=== PATIENT | male | born 1950 | race Caucasian/White ===

== ENCOUNTER → 2016-12-27 | Outpatient (CLI) | payer BC, MEDICARE ==
[~2016-12-27] MED LIST: ABIL20TA2 OR; ATEN25TA OR; ATEN50TA2 OR; BABY81CH OR; CRES40TA OR; FURO20TA2 OR; LEVI20TA OR; LISI2.5T OR; LISI40TA OR; LISI5TAB OR; MELOPOW PO; NICO21DI4 TD; NITR0.4S SL; OMEP20TA7 OR; PAXI30TA OR; PLAV75TA2 OR; TERA2CAP3 OR; colestipol PO
--- NOTE | 2016-12-27 09:32 | REP ---
Cervical spine series: Limited study, two views. History: Status post fusion. Comparison exam August 10, 2016. Findings: AP and lateral views demonstrate ventral discectomy and fusion plating across the C3 through C7 disc levels. Intervertebral disc spacers are seen in place at each of these levels. Alignment is normal. There is mild discogenic spurring at C2-3. This is unchanged. Moderate osteoarthritic facet hypertrophy is noted diffusely also unchanged. The patient is edentulous. No acute abnormality. Impression: Status post ventral discectomy and fusion C3-C7. Signed by Galindo Cat MD 12/27/2016 10:38 A
== END ==
LOC: M ADAMS 08:34
PROVIDERS: ATTEND Family Medicine
DX: M99.81 Other biomechanical lesions of cervical region (principal); M48.02 Spinal stenosis, cervical region; M54.12 Radiculopathy, cervical region; M50.30 Other cervical disc degeneration, unspecified cervical region

== ENCOUNTER → 2017-01-22 | Outpatient (CLI) | payer BC, MEDICARE ==
--- NOTE | 2017-01-22 13:53 | REP ---
CT CERVICAL SPINE WITHOUT CONTRAST: HISTORY: Spinal stenosis. COMPARISON: 03/23/2011. The patient is status post C3-7 anterior spinal fusion. A fixation plate and bone graft material are present. A disc bulge is present at the C2-3 level. Calcification is present posterior to the C2-3 intervertebral disc. This represents calcification of the posterior longitudinal ligament. Posterior osteophytes are present at the C3-4 and C6-7 levels. There is minimal narrowing of the spinal canal. Uncinate process and/or facet hypertrophy are present at the C2-3 through C7-T1 levels. These findings produce minimal to moderate narrowing of the neural foramina. The vertebral bodies are normal in height. IMPRESSION: 1. The patient is status post C3-7 anterior spinal fusion. There is anatomic alignment of the cervical spine. 2. There is cervical spondylosis at the C2-3 through C7-T1 levels. The postoperative change is a new finding. Signed by Simon Fleming MD 01/22/2017 02:24 P
--- NOTE | 2017-01-23 08:16 | REP ---
MRI CERVICAL SPINE WITHOUT CONTRAST: HISTORY: Spinal stenosis. COMPARISON: CT 01/22/2017 A disc bulge is present at the C2-3 level. There is minimal effacement of the thecal sac without spinal cord compression. Facet hypertrophy is present on the left. This produces minimal narrowing of the left C2 neural foramen. The right C2 neural foramen is patent. Posterior osteophytes are present at the C3-4 level. There is minimal effacement of the thecal sac without spinal cord compression. Bilateral uncinate process and facet hypertrophy are present. These findings produce mild and moderate narrowing of the right and left C3 neural foramina respectively. Uncinate process and facet hypertrophy are present on the left at the C4-5 level. These findings produce minimal narrowing of the left C4 neural foramen. The right C4 neural foramen is patent. Bilateral uncinate process hypertrophy is present at the C5-6 level. This produces mild narrowing of the C5 neural foramina. Posterior osteophytes are present at the C6-7 level. There is moderate effacement of the thecal sac without spinal cord compression. Bilateral uncinate process hypertrophy is present. This produces moderate narrowing of the C6 neural foramina. Facet hypertrophy is present at the C7-T1 level. This produces mild narrowing of the C7 neural foramina. There is no other disc bulge or herniation. The remaining neural foramina are patent. The spinal cord is normal in signal intensity. There is no intradural extramedullary lesion. Normal signal intensity is present in the visualized vertebral bodies. A hemangioma is present in the T4 vertebral body. There is no subluxation. IMPRESSION: 1. The patient is status post C3 to C7 anterior spinal fusion. There is anatomical alignment of the cervical spine. 2. There is cervical spondylosis at the C2-3 through C7-T1 levels without spinal cord compression. Signed by Simon Fleming MD 01/22/2017 03:55 P
== END ==
LOC: M RAD 12:54
PROVIDERS: ATTEND Orthopaedic Surgery
DX: M47.12 Other spondylosis with myelopathy, cervical region (principal); Z98.1 Arthrodesis status; M99.81 Other biomechanical lesions of cervical region; M48.02 Spinal stenosis, cervical region; M54.12 Radiculopathy, cervical region; M50.30 Other cervical disc degeneration, unspecified cervical region

== ENCOUNTER → 2017-02-06 | Outpatient (REF) | payer BC, MEDICARE ==
[2017-02-06 13:28] LABS: MEAN CORPUSCULAR HEMOGLOBIN 33.2 pg (27.0-33.0); MEAN CORPUSCULAR HGB CONC 33.8 g/dl (32.0-36.5); MEAN CORPUSCULAR VOLUME 98.1 fl (80.0-96.0); RED CELL DISTRIBUTION WIDTH 13.4 % (11.5-14.5)
== END ==
LOC: M SFHCADAM 10:36
PROVIDERS: ATTEND Family Medicine
DX: I25.10 Atherosclerotic heart disease of native coronary artery without angina pectoris (principal); E78.5 Hyperlipidemia, unspecified

== ENCOUNTER → 2017-02-12 | Outpatient (REF) | payer BC, MEDICARE ==
[2017-02-14 14:13] LABS: Lyme Disease IgG/IgM Antibodie <0.91 ISR (0.00-0.90); Lyme Disease IgM Ab Quantitati <0.80 index (0.00-0.79)
== END ==
LOC: M SFHCADAM 10:12
PROVIDERS: ATTEND Family Medicine
DX: A69.20 Lyme disease, unspecified (principal)

== ENCOUNTER → 2017-02-27 | Outpatient (REF) | payer BC, MEDICARE | LOC: M SFHCADAM 13:10 | PROVIDERS: ATTEND Family Medicine | DX: Z01.818 Encounter for other preprocedural examination (principal) ==

== ENCOUNTER → 2017-05-13 | Outpatient (CLI) | payer BC, MEDICARE ==
--- NOTE | 2017-05-14 04:19 | REP ---
Clinical: Neck pain. Technique: AP, lateral, open mouth views. Comparison: 12/27/2016. Findings: Anterior fusion and discectomy from C3 through C7 remains stable and essentially normal. Alignment and lordosis is maintained. The patient is status post recent laminectomy (C3 - C6) and posterior fusion from C3 through C7. Paravertebral soft tissues appear normal. Impression: Status post anterior fusion, posterior fusion and laminectomy. Alignment remains stable. No soft tissue abnormalities appreciated. Signed by Leandro Chavarria MD 05/14/2017 04:11 A
== END ==
LOC: M ADAMS 13:02
PROVIDERS: ATTEND Orthopaedic Surgery
DX: M50.30 Other cervical disc degeneration, unspecified cervical region (principal)

== ENCOUNTER → 2017-06-25 | Outpatient (REF) | payer BC, MEDICARE ==
[2017-06-25 19:51] LABS: ALBUMIN 4.3 GM/DL (3.2-5.2); ALBUMIN/GLOBULIN RATIO 1.48 (1.00-1.93); ALKALINE PHOSPHATASE 110 U/L (45-117); ALT/SGPT 24 U/L (12-78); ANION GAP 9 MEQ/L (8-16); AST/SGOT 19 U/L (15-37); BILIRUBIN,TOTAL 0.7 MG/DL (0.2-1.0); BLOOD UREA NITROGEN 16 MG/DL (7-18); CALCIUM LEVEL 8.5 MG/DL (8.8-10.2); CARBON DIOXIDE LEVEL 27 MEQ/L (21-32); CHLORIDE LEVEL 103 MEQ/L (98-107); CREATININE FOR GFR 1.03 MG/DL (0.70-1.30); FREE T4 0.91 NG/DL (0.76-1.46); GLOMERULAR FILTRATION RATE > 60.0 (>49); GLUCOSE, FASTING 79 MG/DL (80-110); POTASSIUM SERUM 4.4 MEQ/L (3.5-5.1); SODIUM LEVEL 139 MEQ/L (136-145); TOTAL PROTEIN 7.2 GM/DL (6.4-8.2)
[2017-06-25 20:39] LABS: MEAN CORPUSCULAR HEMOGLOBIN 31.6 pg (27.0-33.0); MEAN CORPUSCULAR HGB CONC 32.3 g/dl (32.0-36.5); MEAN CORPUSCULAR VOLUME 97.8 fl (80.0-96.0); RED CELL DISTRIBUTION WIDTH 13.4 % (11.5-14.5); WHITE BLOOD COUNT 4.5 K/mm3 (4.0-10.0)
[2017-06-28 00:07] LABS: Lyme Disease IgG/IgM Antibodie <0.91 ISR (0.00-0.90); Lyme Disease IgM Ab Quantitati <0.80 index (0.00-0.79)
== END ==
LOC: M SFHCADAM 15:31
PROVIDERS: ATTEND Family Medicine
DX: R53.83 Other fatigue (principal); R73.03 Prediabetes; M25.50 Pain in unspecified joint

== ENCOUNTER → 2017-08-14 | Outpatient (CLI) | payer BC, MEDICARE ==
--- NOTE | 2017-08-14 11:30 | REP ---
Clinical: Radiculopathy. Technique: AP, lateral, open mouth views of the cervical spine. Comparison: 05/13/2017. Findings: The patient is status post anterior and posterior fixation and discectomy at the C3 through C7 levels. Alignment and lordosis maintained. Examination remains stable and unchanged compared to prior. No new acute findings are appreciated. Prevertebral soft tissues are normal. Impression: Stable examination when compared to 05/13/2017. Signed by Leandro Chavarria MD 08/14/2017 11:22 A
== END ==
LOC: M ADAMS 10:49
PROVIDERS: ATTEND Orthopaedic Surgery
DX: M54.12 Radiculopathy, cervical region (principal); M48.02 Spinal stenosis, cervical region; M50.30 Other cervical disc degeneration, unspecified cervical region; M99.81 Other biomechanical lesions of cervical region

== ENCOUNTER → 2017-10-09 | Outpatient (CLI) | payer BC, MEDICARE ==
--- NOTE | 2017-10-09 11:44 | REP ---
Chest two views HISTORY: Dyspnea Comparison: 11/17/2015 The lungs are clear. The heart is normal in size. The pulmonary vasculature is normal in appearance. Degenerative change is present in the thoracic spine. IMPRESSION: No acute disease. Signed by Simon Fleming MD 10/09/2017 11:36 A
== END ==
LOC: M ADAMS 10:33
PROVIDERS: ATTEND Family Medicine
DX: R06.09 Other forms of dyspnea (principal)

== ENCOUNTER → 2017-11-06 | Outpatient (REF) | payer BC, MEDICARE ==
[2017-11-06 13:05] LABS: ALBUMIN 4.2 GM/DL (3.2-5.2); ALBUMIN/GLOBULIN RATIO 1.31 (1.00-1.93); ALKALINE PHOSPHATASE 125 U/L (45-117); ALT/SGPT 133 U/L (12-78); ANION GAP 9 MEQ/L (8-16); AST/SGOT 84 U/L (7-37); BILIRUBIN,TOTAL 0.6 MG/DL (0.2-1.0); BLOOD UREA NITROGEN 14 MG/DL (7-18); CALCIUM LEVEL 8.6 MG/DL (8.8-10.2); CARBON DIOXIDE LEVEL 28 MEQ/L (21-32); CHLORIDE LEVEL 102 MEQ/L (98-107); CREATININE FOR GFR 0.96 MG/DL (0.70-1.30); FERRITIN 90 NG/ML (26-388); GLOMERULAR FILTRATION RATE > 60.0 (>49); GLUCOSE, FASTING 81 MG/DL (80-110); POTASSIUM SERUM 4.7 MEQ/L (3.5-5.1); SODIUM LEVEL 139 MEQ/L (136-145); TOTAL PROTEIN 7.4 GM/DL (6.4-8.2)
[2017-11-06 13:12] LABS: HEPATITIS B SURFACE ANTIBODY NEGATIVE (POSITIVE)
[2017-11-07 14:21] LABS: ALPHA 1 ANTITRYPSIN 149 mg/dL (90-200)
== END ==
LOC: M SFHCADAM 10:42
PROVIDERS: ATTEND Family Medicine
DX: R74.8 Abnormal levels of other serum enzymes (principal)

== ENCOUNTER → 2017-12-03 | Outpatient (REF) | payer BC, MEDICARE ==
[2017-12-03 12:50] LABS: HEMATOCRIT 38.9 % (42.0-52.0); HEMOGLOBIN 12.5 g/dl (14.0-18.0); MEAN CORPUSCULAR HEMOGLOBIN 29.6 pg (27.0-33.0); MEAN CORPUSCULAR HGB CONC 32.1 g/dl (32.0-36.5); PLATELET COUNT, AUTOMATED 210 10^3/uL (150-450); RED BLOOD COUNT 4.23 10^6/uL (4.30-6.10); RED CELL DISTRIBUTION WIDTH 12.9 % (11.5-14.5); WHITE BLOOD COUNT 7.9 10^3/uL (4.0-10.0)
[2017-12-03 13:05] LABS: INR 1.05; PROTHROMBIN TIME 13.8 SECONDS (12.4-14.5)
[2017-12-03 13:19] LABS: ANION GAP 12 MEQ/L (8-16); BLOOD UREA NITROGEN 17 MG/DL (7-18); CALCIUM LEVEL 8.3 MG/DL (8.8-10.2); CARBON DIOXIDE LEVEL 25 MEQ/L (21-32); CHLORIDE LEVEL 101 MEQ/L (98-107); CREATININE FOR GFR 1.19 MG/DL (0.70-1.30); GLOMERULAR FILTRATION RATE > 60.0 (>49); GLUCOSE, FASTING 104 MG/DL (80-110); NT-PRO BNP 338 PG/ML (<125); POTASSIUM SERUM 4.2 MEQ/L (3.5-5.1); SODIUM LEVEL 138 MEQ/L (136-145)
== END ==
LOC: M LABDRWAD 12:27
DX: J44.9 Chronic obstructive pulmonary disease, unspecified (principal); I50.9 Heart failure, unspecified
CPT/HCPCS: 80048

== ENCOUNTER → 2017-12-04 | Outpatient (CLI) | payer BC, MEDICARE | LOC: M RAD 08:04 | DX: R74.8 Abnormal levels of other serum enzymes (principal); K76.0 Fatty (change of) liver, not elsewhere classified; R93.2 Abnormal findings on diagnostic imaging of liver and biliary tract | CPT/HCPCS: 76705 ==

== ENCOUNTER → 2018-01-29 | Outpatient (CLI) | payer BC, MEDICARE | LOC: M RAD 09:19 | DX: F17.210 Nicotine dependence, cigarettes, uncomplicated (principal) ==

== ENCOUNTER → 2018-03-14 | Outpatient (CLI) | payer BC, MEDICARE | LOC: M PAIN 09:30 | DX: G89.29 Other chronic pain (principal); M54.16 Radiculopathy, lumbar region; M51.26 Other intervertebral disc displacement, lumbar region; I25.10 Atherosclerotic heart disease of native coronary artery without angina pectoris; G47.30 Sleep apnea, unspecified; F31.9 Bipolar disorder, unspecified; N52.9 Male erectile dysfunction, unspecified; F43.10 Post-traumatic stress disorder, unspecified; E78.5 Hyperlipidemia, unspecified; I10 Essential (primary) hypertension; J44.9 Chronic obstructive pulmonary disease, unspecified; M54.2 Cervicalgia; R73.03 Prediabetes; N40.0 Benign prostatic hyperplasia without lower urinary tract symptoms; K76.0 Fatty (change of) liver, not elsewhere classified; L71.9 Rosacea, unspecified; Z95.5 Presence of coronary angioplasty implant and graft; Z87.891 Personal history of nicotine dependence; Z98.1 Arthrodesis status; Z79.02 Long term (current) use of antithrombotics/antiplatelets; Z79.82 Long term (current) use of aspirin; Z79.899 Other long term (current) drug therapy; Z88.0 Allergy status to penicillin; Z88.8 Allergy status to other drugs, medicaments and biological substances; Z88.1 Allergy status to other antibiotic agents | CPT/HCPCS: G0463 ==

== ENCOUNTER → 2018-04-04 | Outpatient (REF) | payer BC, MEDICARE ==
[2018-04-04 14:14] LABS: PSA SCREENING 0.83 NG/ML (< 4.0)
== END ==
LOC: M LABDRWAD 12:34
DX: Z12.5 Encounter for screening for malignant neoplasm of prostate (principal)
CPT/HCPCS: G0103

== ENCOUNTER → 2018-04-07 | Outpatient (REF) | payer BC, MEDICARE ==
[2018-04-07 19:31] LABS: APPEARANCE, URINE CLEAR (CLEAR); BACTERIA, URINE AUTO NEGATIVE (NEGATIVE); BILIRUBIN, URINE AUTO NEGATIVE (NEGATIVE); BLOOD, URINE BLOOD NEGATIVE (NEGATIVE); COLOR, URINE STRAW (YELLOW); GLUCOSE, URINE (UA) AUTO NEGATIVE (NEGATIVE); KETONE, URINE AUTO NEGATIVE (NEGATIVE); LEUKOCYTE ESTERASE, URINE AUTO NEGATIVE (NEGATIVE); NITRITE, URINE AUTO NEGATIVE (NEGATIVE); PROTEIN, URINE AUTO NEGATIVE (NEGATIVE); RBC, URINE AUTO 0 /HPF (0-3); SPECIFIC GRAVITY URINE AUTO 1.003 (1.002-1.035); SQUAMOUS EPITHELIAL CELL UR AU 0 /HPF (0-6); UROBILINOGEN, URINE AUTO 0.2 mg/dL (0.0-2.0); WBC, URINE AUTO 0 /HPF (0-3)
== END ==
LOC: M SMT 18:43
DX: N40.0 Benign prostatic hyperplasia without lower urinary tract symptoms (principal)
CPT/HCPCS: 81001

== ENCOUNTER → 2018-04-14 | Outpatient (REF) | payer BC, MEDICARE | LOC: M SMT 12:31 | DX: N40.1 Benign prostatic hyperplasia with lower urinary tract symptoms (principal) | CPT/HCPCS: 87088 ==

== ENCOUNTER → 2018-04-21 | Outpatient (CLI) | payer BC, MEDICARE | LOC: M RAD 08:01 | DX: N40.1 Benign prostatic hyperplasia with lower urinary tract symptoms (principal) | CPT/HCPCS: 76857 ==

== ENCOUNTER → 2018-04-25 | Outpatient (CLI) | payer BC, MEDICARE | LOC: M RAD 08:25 | DX: N40.0 Benign prostatic hyperplasia without lower urinary tract symptoms (principal) ==

== ENCOUNTER → 2018-05-08 | Outpatient (REF) | payer BC, MEDICARE | LOC: M SMT 12:24 | DX: N40.0 Benign prostatic hyperplasia without lower urinary tract symptoms (principal); Z01.818 Encounter for other preprocedural examination; N39.0 Urinary tract infection, site not specified | CPT/HCPCS: 87086 ==

== ENCOUNTER → 2018-05-08 | Outpatient (CLI) | payer BC, MEDICARE | LOC: M RAD 07:59 | DX: R91.8 Other nonspecific abnormal finding of lung field (principal) ==

== ENCOUNTER → 2018-05-15 | Outpatient (CLI) | payer BC, MEDICARE | LOC: M PAIN 09:15 | DX: M51.26 Other intervertebral disc displacement, lumbar region (principal); G47.30 Sleep apnea, unspecified; F31.9 Bipolar disorder, unspecified; I25.10 Atherosclerotic heart disease of native coronary artery without angina pectoris; F43.10 Post-traumatic stress disorder, unspecified; E78.5 Hyperlipidemia, unspecified; I10 Essential (primary) hypertension; J44.9 Chronic obstructive pulmonary disease, unspecified; M19.90 Unspecified osteoarthritis, unspecified site; R73.09 Other abnormal glucose; L71.9 Rosacea, unspecified; K76.0 Fatty (change of) liver, not elsewhere classified; Z79.01 Long term (current) use of anticoagulants; Z79.82 Long term (current) use of aspirin; Z79.899 Other long term (current) drug therapy; Z88.0 Allergy status to penicillin; Z88.1 Allergy status to other antibiotic agents; Z88.8 Allergy status to other drugs, medicaments and biological substances; Z87.891 Personal history of nicotine dependence; Z93.6 Other artificial openings of urinary tract status | CPT/HCPCS: G0463 ==

== ENCOUNTER → 2018-05-23 | Outpatient (REF) | payer BC ==
[2018-05-23 14:16] LABS: APPEARANCE, URINE CLEAR (CLEAR); BACTERIA, URINE AUTO NEGATIVE (NEGATIVE); BILIRUBIN, URINE AUTO NEGATIVE (NEGATIVE); BLOOD, URINE BLOOD 2+ (NEGATIVE); COLOR, URINE STRAW (YELLOW); GLUCOSE, URINE (UA) AUTO NEGATIVE (NEGATIVE); KETONE, URINE AUTO NEGATIVE (NEGATIVE); LEUKOCYTE ESTERASE, URINE AUTO NEGATIVE (NEGATIVE); NITRITE, URINE AUTO NEGATIVE (NEGATIVE); PROTEIN, URINE AUTO NEGATIVE (NEGATIVE); RBC, URINE AUTO 5 /HPF (0-3); SPECIFIC GRAVITY URINE AUTO 1.003 (1.002-1.035); SQUAMOUS EPITHELIAL CELL UR AU 0 /HPF (0-6); UROBILINOGEN, URINE AUTO 0.2 mg/dL (0.0-2.0); WBC, URINE AUTO 0 /HPF (0-3)
== END ==
LOC: M SMT 13:46
DX: N40.0 Benign prostatic hyperplasia without lower urinary tract symptoms (principal)
CPT/HCPCS: 81001

== ENCOUNTER → 2018-06-24 | Outpatient (REF) | payer BC, MEDICARE ==
[2018-06-24 19:37] LABS: ALBUMIN/GLOBULIN RATIO 1.29 (1.00-1.93); ALKALINE PHOSPHATASE 102 U/L (45-117); ALT/SGPT 128 U/L (12-78); ANION GAP 7 MEQ/L (8-16); AST/SGOT 92 U/L (7-37); BILIRUBIN,TOTAL 0.9 MG/DL (0.2-1.0); BLOOD UREA NITROGEN 15 MG/DL (7-18); CALCIUM LEVEL 8.7 MG/DL (8.8-10.2); CARBON DIOXIDE LEVEL 32 MEQ/L (21-32); CHLORIDE LEVEL 99 MEQ/L (98-107); CHOLESTEROL LEVEL 116 MG/DL (<200); CHOLESTEROL RISK RATIO 2.148 (<5); CREATININE FOR GFR 1.11 MG/DL (0.70-1.30); GLOMERULAR FILTRATION RATE > 60.0 (>49); GLUCOSE, FASTING 83 MG/DL (70-100); HDL CHOLESTEROL 54 MG/DL (>40); LDL CHOLESTEROL 45.6 MG/DL (<100); NON-HDL-C 62 MG/DL; POTASSIUM SERUM 4.4 MEQ/L (3.5-5.1); SODIUM LEVEL 138 MEQ/L (136-145); TOTAL PROTEIN 7.1 GM/DL (6.4-8.2); TRIGLYCERIDES LEVEL 82 MG/DL (<150)
[2018-06-24 19:54] LABS: HEMATOCRIT 43.6 % (42.0-52.0); HEMOGLOBIN 14.1 g/dl (13.5-17.5); MEAN CORPUSCULAR HEMOGLOBIN 29.2 pg (27.0-33.0); MEAN CORPUSCULAR HGB CONC 32.3 g/dl (32.0-36.5); MEAN CORPUSCULAR VOLUME 90.3 fl (80.0-96.0); PLATELET COUNT, AUTOMATED 167 10^3/uL (150-450); RED BLOOD COUNT 4.83 10^6/uL (4.30-6.10)
== END ==
LOC: M SFHCADAM 14:20
DX: Z95.1 Presence of aortocoronary bypass graft (principal); J44.9 Chronic obstructive pulmonary disease, unspecified; K76.0 Fatty (change of) liver, not elsewhere classified

== ENCOUNTER → 2018-06-25 | Outpatient (CLI) | payer BC, MEDICARE | LOC: M RAD 16:09 | DX: M51.26 Other intervertebral disc displacement, lumbar region (principal) | CPT/HCPCS: 72148 ==

== ENCOUNTER → 2018-06-30 | Outpatient (CLI) | payer BC, MEDICARE | LOC: M PAIN 10:45 | DX: M48.07 Spinal stenosis, lumbosacral region (principal); G89.29 Other chronic pain; G47.30 Sleep apnea, unspecified; I10 Essential (primary) hypertension; J44.9 Chronic obstructive pulmonary disease, unspecified; M19.90 Unspecified osteoarthritis, unspecified site; E78.5 Hyperlipidemia, unspecified; F31.9 Bipolar disorder, unspecified; F43.10 Post-traumatic stress disorder, unspecified; L71.9 Rosacea, unspecified; K76.0 Fatty (change of) liver, not elsewhere classified; R73.09 Other abnormal glucose; F17.210 Nicotine dependence, cigarettes, uncomplicated; Z79.01 Long term (current) use of anticoagulants; Z79.82 Long term (current) use of aspirin; Z79.899 Other long term (current) drug therapy; Z88.0 Allergy status to penicillin; Z88.1 Allergy status to other antibiotic agents; Z88.8 Allergy status to other drugs, medicaments and biological substances; Z86.79 Personal history of other diseases of the circulatory system | CPT/HCPCS: G0463 ==

== ENCOUNTER → 2018-09-01 | Outpatient (CLI) | payer BC, MEDICARE | LOC: M PAIN 09:30 | DX: M48.07 Spinal stenosis, lumbosacral region (principal); M54.2 Cervicalgia; E87.5 Hyperkalemia; I10 Essential (primary) hypertension; F32.9 Major depressive disorder, single episode, unspecified; N40.0 Benign prostatic hyperplasia without lower urinary tract symptoms; I25.10 Atherosclerotic heart disease of native coronary artery without angina pectoris; K76.0 Fatty (change of) liver, not elsewhere classified; F17.210 Nicotine dependence, cigarettes, uncomplicated; Z79.82 Long term (current) use of aspirin; Z79.01 Long term (current) use of anticoagulants; Z79.899 Other long term (current) drug therapy; Z88.0 Allergy status to penicillin; Z88.8 Allergy status to other drugs, medicaments and biological substances; Z95.1 Presence of aortocoronary bypass graft | CPT/HCPCS: G0463 ==

== ENCOUNTER 2018-09-08 10:43 | Day surgery (SDC) | payer BC, MEDICARE ==
[~2018-09-08 10:43] MED LIST changes: -ABIL20TA2 OR; +ACETAMINOPHEN 325 MG TAB PO; -ATEN25TA OR; -ATEN50TA2 OR; -BABY81CH OR; -CRES40TA OR; -FURO20TA2 OR; -LEVI20TA OR; -LISI2.5T OR; -LISI40TA OR; -LISI5TAB OR; -MELOPOW PO; +MIDAZOLAM INJ 2 MG/2 ML VIAL (J2250) As Ordered; -NICO21DI4 TD; -NITR0.4S SL; -OMEP20TA7 OR; -PAXI30TA OR; +PHENYLEPHRINE 2.5% OPHTH SOL 2ML OS; +PHENYLEPHRINE HCL 10 % OPHTH. SOL 5ML OS; -PLAV75TA2 OR; -TERA2CAP3 OR; -colestipol PO; +fentaNYL 100 MCG/2 ML INJECTION (J3010) As Ordered
[2018-09-08] MEDS ORDERED: CYCLOPENTOLATE 2% OPHTH SOLN 2ML BTL As Ordered (10:59)
[2018-09-08] MEDS ORDERED: OFLOXACIN 0.3 % (OCUFLOX) OPTH SOL 5ML As Ordered (10:59)
[2018-09-08] MEDS ORDERED: PHENYLEPHRINE 2.5% OPHTH SOL 2ML As Ordered (10:59)
[2018-09-08] MEDS ORDERED: TROPICAMIDE 1% OPHTH SOLN 2ML As Ordered (10:59)
[2018-09-08] MEDS: OFLOXACIN 0.3 % (OCUFLOX) OPTH SOL 5ML OS (11:39)
[2018-09-08] MEDS: TROPICAMIDE 1% OPHTH SOLN 2ML OS (11:39)
[2018-09-08] MEDS: CYCLOPENTOLATE 2% OPHTH SOLN 2ML BTL OS (11:39)
[2018-09-08] MEDS: LIDOCAINE 3.5 % 1ML OPHTH TOPICAL GEL OU (11:39)
[2018-09-08] MEDS: POVIDONE-IODINE 5% OPHTH PREP SOL 30ML As Ordered (12:38)
[2018-09-08] MEDS: LIDOCAINE 1% SDV 5 ML VIAL As Ordered (12:42)
[2018-09-08] MEDS: BSS with VANC/TOB/EPI for EYE CASES IR (12:43)
[2018-09-08] MEDS: MOXIFLOXACIN IN BSS 0.25MG/0.25ML INTRACAMERAL INJ (OR EYE ONLY)(J2280) As Ordered (12:48)
[2018-09-08] MEDS: TRIAMCINOLONE PRES FR 40 MG/ML 1ML(TRIESENCE)(OR EYE ONLY)(J3300 PER 1MG) As Ordered (12:48)
[2018-09-08] MEDS: HEALON DUET (HEALON 10MG/ML 0.55ML & HEALON ENDOCOAT 30MG/ML 0.85ML) As Ordered (12:48)
[2018-09-08] MEDS ORDERED: AcetaZOLAMIDE 500 MG ER CAP As Ordered (13:11)
[2018-09-08] MEDS: AcetaZOLAMIDE 500 MG ER CAP PO (13:20)
[2018-09-08] MEDS ORDERED: TRIMETHOBENZAMIDE 300 MG CAP PO (13:30)
== END 2018-09-08 13:43 | disposition home or self-care (01) ==
LOC: M SDC 10:43
DX: H25.9 Unspecified age-related cataract (principal); Z98.61 Coronary angioplasty status; Z79.02 Long term (current) use of antithrombotics/antiplatelets; Z79.899 Other long term (current) drug therapy; F17.210 Nicotine dependence, cigarettes, uncomplicated; G47.30 Sleep apnea, unspecified; I10 Essential (primary) hypertension; J44.9 Chronic obstructive pulmonary disease, unspecified; Z88.0 Allergy status to penicillin
CPT/HCPCS: 66984

== ENCOUNTER 2018-09-17 10:14 | Day surgery (SDC) | payer BC, MEDICARE ==
[~2018-09-17 10:14] MED LIST changes: -MIDAZOLAM INJ 2 MG/2 ML VIAL (J2250) As Ordered; -PHENYLEPHRINE 2.5% OPHTH SOL 2ML OS; +PHENYLEPHRINE HCL 10 % OPHTH. SOL 5ML OD; -PHENYLEPHRINE HCL 10 % OPHTH. SOL 5ML OS; -fentaNYL 100 MCG/2 ML INJECTION (J3010) As Ordered
[2018-09-17] MEDS: OFLOXACIN 0.3 % (OCUFLOX) OPTH SOL 5ML OD (11:12)
[2018-09-17] MEDS: TROPICAMIDE 1% OPHTH SOLN 2ML OD (11:12)
[2018-09-17] MEDS: CYCLOPENTOLATE 2% OPHTH SOLN 2ML BTL OD (11:12)
[2018-09-17] MEDS: PHENYLEPHRINE 2.5% OPHTH SOL 2ML OD (11:12)
[2018-09-17] MEDS: LIDOCAINE 3.5 % 1ML OPHTH TOPICAL GEL OU (11:12)
[2018-09-17] MEDS ORDERED: fentaNYL 100 MCG/2 ML INJECTION (J3010) As Ordered (12:04)
[2018-09-17] MEDS ORDERED: MIDAZOLAM INJ 2 MG/2 ML VIAL (J2250) As Ordered (12:04)
[2018-09-17] MEDS: HEALON DUET (HEALON 10MG/ML 0.55ML & HEALON ENDOCOAT 30MG/ML 0.85ML) As Ordered (12:28)
[2018-09-17] MEDS: BSS with VANC/TOB/EPI for EYE CASES IR (12:28)
[2018-09-17] MEDS: LIDOCAINE 1% SDV 5 ML VIAL As Ordered (12:28)
[2018-09-17] MEDS: POVIDONE-IODINE 5% OPHTH PREP SOL 30ML As Ordered (12:28)
[2018-09-17] MEDS: TRIAMCINOLONE PRES FR 40 MG/ML 1ML(TRIESENCE)(OR EYE ONLY)(J3300 PER 1MG) As Ordered (12:29)
[2018-09-17] MEDS: MOXIFLOXACIN IN BSS 0.25MG/0.25ML INTRACAMERAL INJ (OR EYE ONLY)(J2280) As Ordered (12:29)
[2018-09-17] MEDS ORDERED: AcetaZOLAMIDE 500 MG ER CAP As Ordered (13:35)
[2018-09-17] MEDS: AcetaZOLAMIDE 500 MG ER CAP PO (13:40)
[2018-09-17] MEDS ORDERED: TRIMETHOBENZAMIDE 300 MG CAP PO (13:45)
== END 2018-09-17 13:40 | disposition home or self-care (01) ==
LOC: M SDC 10:14
DX: H26.9 Unspecified cataract (principal); I10 Essential (primary) hypertension; E78.5 Hyperlipidemia, unspecified; F31.9 Bipolar disorder, unspecified; F17.210 Nicotine dependence, cigarettes, uncomplicated; G47.30 Sleep apnea, unspecified; Z79.899 Other long term (current) drug therapy; Z88.0 Allergy status to penicillin; Z79.82 Long term (current) use of aspirin; Z98.61 Coronary angioplasty status
CPT/HCPCS: 66984

== ENCOUNTER 2018-09-18 09:22 | Inpatient (IN) | payer BC, MEDICARE ==
[2018-09-18 09:59] LABS: BEDSIDE GLUCOSE 92 MG/DL (80-115)
[2018-09-18 10:04] LABS: BASO % 0.5 % (0.0-1.0); EOS # 0.1 10^3/uL (0.0-0.50); EOS % 1.6 % (0.0-3.0); HEMATOCRIT 43.8 % (42.0-52.0); HEMOGLOBIN 14.2 g/dl (13.5-17.5); IMMATURE GRANULOCYTE % 0.3 % (0-3.0); LYMPH % 13.5 % (24.0-44.0); MEAN CORPUSCULAR HEMOGLOBIN 29.6 pg (27.0-33.0); MEAN CORPUSCULAR HGB CONC 32.4 g/dl (32.0-36.5); MEAN CORPUSCULAR VOLUME 91.3 fl (80.0-96.0); MONO # 0.4 10^3/uL (0.0-0.8); MONO % 5.9 % (0.0-5.0); NEUTROPHILS # 5.8 10^3/uL (1.8-7.7); NEUTROPHILS % 78.2 % (36.0-66.0); PLATELET COUNT, AUTOMATED 164 10^3/uL (150-450); RED CELL DISTRIBUTION WIDTH 15.9 % (11.5-14.5); WHITE BLOOD COUNT 7.4 10^3/uL (4.0-10.0)
[2018-09-18 11:08] LABS: ANION GAP 7 MEQ/L (8-16); BLOOD UREA NITROGEN 13 MG/DL (7-18); CALCIUM LEVEL 8.2 MG/DL (8.8-10.2); CARBON DIOXIDE LEVEL 28 MEQ/L (21-32); CHLORIDE LEVEL 99 MEQ/L (98-107); CPK CREATINE PHOSPHOKINASE 134 U/L (39-308); CREATININE FOR GFR 1.07 MG/DL (0.70-1.30); GLOMERULAR FILTRATION RATE > 60.0 (>49); GLUCOSE, FASTING 93 MG/DL (70-100); MB/CK RELATIVE INDEX 1.42 (< OR =4); POTASSIUM SERUM 3.9 MEQ/L (3.5-5.1); SODIUM LEVEL 134 MEQ/L (136-145); TROPONIN I < 0.02 NG/ML (< 0.10)
[2018-09-18 12:13] LABS: AMPHETAMINES LEVEL URINE NEGATIVE (NEGATIVE); BARBITURATES URINE NEGATIVE (NEGATIVE); BENZODIAZEPINES URINE POSITIVE (NEGATIVE); CANNABINOIDS URINE NEGATIVE (NEGATIVE); COCAINE METABOLITE URINE NEGATIVE (NEGATIVE); METHADONE URINE NEGATIVE (NEGATIVE); OPIATES URINE NEGATIVE (NEGATIVE); PHENCYCLIDINE URINE NEGATIVE (NEGATIVE)
[2018-09-18] MEDS ORDERED: BISACODYL 5 MG TAB PO (15:15)
[2018-09-18] MEDS ORDERED: ACETAMINOPHEN TAB 650MG DOSE (2X325MG) PO (15:15)
[2018-09-18] MEDS: ASPIRIN 81 MG ENTERIC TAB PO (18:19)
[2018-09-18] MEDS: OMEPRAZOLE 20 MG CAP PO (18:19)
[2018-09-18] MEDS: SERTRALINE 100 MG TAB PO (18:19)
[2018-09-18] MEDS: CLOPIDOGREL 75 MG TAB PO (18:19)
[2018-09-18] MEDS: METOPROLOL SUCC (TopROL XL) 50MG **XL** TAB PO (18:22)
[2018-09-18] MEDS: ROSUVASTATIN 10 MG TAB (CRESTOR) PO (20:31)
[2018-09-18] MEDS: MELOXICAM (MOBIC) 7.5 MG TAB PO (20:31)
[2018-09-18] MEDS: MAGNESIUM OXIDE 400 MG TAB (MAG-OX) PO (20:31)
[2018-09-18 20:34] LABS: CPK CREATINE PHOSPHOKINASE 110 U/L (39-308); MB/CK RELATIVE INDEX 1.36 (< OR =4); TROPONIN I < 0.02 NG/ML (< 0.10)
[2018-09-18] MEDS: LISINOPRIL 10 MG TAB PO (20:37)
[2018-09-18] MEDS: ADVAIR HFA 230/21MCG INHALER INH (21:25)
[2018-09-19 04:57] LABS: HEMATOCRIT 40.1 % (42.0-52.0); HEMOGLOBIN 12.9 g/dl (13.5-17.5); MEAN CORPUSCULAR HEMOGLOBIN 29.2 pg (27.0-33.0); MEAN CORPUSCULAR HGB CONC 32.2 g/dl (32.0-36.5); MEAN CORPUSCULAR VOLUME 90.7 fl (80.0-96.0); PLATELET COUNT, AUTOMATED 129 10^3/uL (150-450); RED BLOOD COUNT 4.42 10^6/uL (4.30-6.10); RED CELL DISTRIBUTION WIDTH 15.7 % (11.5-14.5); WHITE BLOOD COUNT 5.7 10^3/uL (4.0-10.0)
[2018-09-19 05:25] LABS: ANION GAP 5 MEQ/L (8-16); BLOOD UREA NITROGEN 14 MG/DL (7-18); CALCIUM LEVEL 8.1 MG/DL (8.8-10.2); CARBON DIOXIDE LEVEL 25 MEQ/L (21-32); CHLORIDE LEVEL 108 MEQ/L (98-107); CPK CREATINE PHOSPHOKINASE 97 U/L (39-308); CREATININE FOR GFR 1.04 MG/DL (0.70-1.30); GLOMERULAR FILTRATION RATE > 60.0 (>49); GLUCOSE, FASTING 108 MG/DL (70-100); MB/CK RELATIVE INDEX 1.13 (< OR =4); SODIUM LEVEL 138 MEQ/L (136-145); TROPONIN I < 0.02 NG/ML (< 0.10)
[2018-09-19 05:56] LABS: ALBUMIN 3.4 GM/DL (3.2-5.2); ALBUMIN/GLOBULIN RATIO 1.13 (1.00-1.93); ALKALINE PHOSPHATASE 104 U/L (45-117); ALT/SGPT 68 U/L (12-78); AST/SGOT 41 U/L (7-37); BILIRUBIN,DIRECT 0.1 MG/DL (0.0-0.2); BILIRUBIN,TOTAL 0.5 MG/DL (0.2-1.0); TOTAL PROTEIN 6.4 GM/DL (6.4-8.2)
[2018-09-19] MEDS: TIOTROPIUM INHALER/CAPSULE (SPIRIVA) INH (08:35)
[2018-09-19] MEDS: ADVAIR HFA 230/21MCG INHALER INH ×2 (08:35→20:39)
[2018-09-19] MEDS: METOPROLOL SUCC (TopROL XL) 50MG **XL** TAB PO (09:00)
[2018-09-19] MEDS: FUROSEMIDE 40 MG TAB PO (09:12)
[2018-09-19] MEDS: OMEPRAZOLE 20 MG CAP PO (09:12)
[2018-09-19] MEDS: ASPIRIN 81 MG ENTERIC TAB PO (09:12)
[2018-09-19] MEDS: SERTRALINE 100 MG TAB PO (09:12)
[2018-09-19] MEDS: CLOPIDOGREL 75 MG TAB PO (09:13)
[2018-09-19 12:57] LABS: CPK CREATINE PHOSPHOKINASE 116 U/L (39-308); MB/CK RELATIVE INDEX 1.03 (< OR =4); TROPONIN I < 0.02 NG/ML (< 0.10)
[2018-09-19] MEDS: ROSUVASTATIN 10 MG TAB (CRESTOR) PO (20:07)
[2018-09-19] MEDS: MELOXICAM (MOBIC) 7.5 MG TAB PO (20:08)
[2018-09-19] MEDS: LISINOPRIL 10 MG TAB PO (20:08)
[2018-09-19] MEDS: MAGNESIUM OXIDE 400 MG TAB (MAG-OX) PO (20:09)
[2018-09-20] MEDS ORDERED: SLF 3 ML SYR IV (00:15)
[2018-09-20 05:12] LABS: HEMATOCRIT 38.3 % (42.0-52.0); HEMOGLOBIN 12.4 g/dl (13.5-17.5); MEAN CORPUSCULAR HEMOGLOBIN 29.5 pg (27.0-33.0); MEAN CORPUSCULAR HGB CONC 32.4 g/dl (32.0-36.5); PLATELET COUNT, AUTOMATED 123 10^3/uL (150-450); RED BLOOD COUNT 4.21 10^6/uL (4.30-6.10); RED CELL DISTRIBUTION WIDTH 15.6 % (11.5-14.5); WHITE BLOOD COUNT 6.7 10^3/uL (4.0-10.0)
[2018-09-20] MEDS: SLF 3 ML SYR IV (05:35)
[2018-09-20 05:43] LABS: ANION GAP 8 MEQ/L (8-16); BLOOD UREA NITROGEN 16 MG/DL (7-18); CALCIUM LEVEL 7.9 MG/DL (8.8-10.2); CARBON DIOXIDE LEVEL 22 MEQ/L (21-32); CHLORIDE LEVEL 107 MEQ/L (98-107); CREATININE FOR GFR 1.12 MG/DL (0.70-1.30); GLOMERULAR FILTRATION RATE > 60.0 (>49); GLUCOSE, FASTING 108 MG/DL (70-100); POTASSIUM SERUM 3.8 MEQ/L (3.5-5.1); SODIUM LEVEL 137 MEQ/L (136-145)
[2018-09-20] MEDS: TIOTROPIUM INHALER/CAPSULE (SPIRIVA) INH (07:18)
[2018-09-20] MEDS: ADVAIR HFA 230/21MCG INHALER INH (07:18)
[2018-09-20] MEDS: SERTRALINE 100 MG TAB PO (08:37)
[2018-09-20] MEDS: CLOPIDOGREL 75 MG TAB PO (08:37)
[2018-09-20] MEDS: OMEPRAZOLE 20 MG CAP PO (08:37)
[2018-09-20] MEDS: ASPIRIN 81 MG ENTERIC TAB PO (08:38)
== END 2018-09-20 12:10 | disposition home or self-care (01) | DRG 207 ==
LOC: M ED 09:22 → M ED INP 13:34 → M PCU 18:56
DX: I95.2 Hypotension due to drugs (principal); J44.9 Chronic obstructive pulmonary disease, unspecified; E78.00 Pure hypercholesterolemia, unspecified; F31.9 Bipolar disorder, unspecified; F43.10 Post-traumatic stress disorder, unspecified; M19.90 Unspecified osteoarthritis, unspecified site; M51.16 Intervertebral disc disorders with radiculopathy, lumbar region; N52.9 Male erectile dysfunction, unspecified; M50.10 Cervical disc disorder with radiculopathy, unspecified cervical region; I25.10 Atherosclerotic heart disease of native coronary artery without angina pectoris; I10 Essential (primary) hypertension; N40.0 Benign prostatic hyperplasia without lower urinary tract symptoms; G47.33 Obstructive sleep apnea (adult) (pediatric); R00.1 Bradycardia, unspecified; T44.7X5A Adverse effect of beta-adrenoreceptor antagonists, initial encounter; T46.5X5A Adverse effect of other antihypertensive drugs, initial encounter; F10.20 Alcohol dependence, uncomplicated; R73.03 Prediabetes; I25.2 Old myocardial infarction; M17.0 Bilateral primary osteoarthritis of knee; Z95.5 Presence of coronary angioplasty implant and graft; Z98.1 Arthrodesis status; F17.210 Nicotine dependence, cigarettes, uncomplicated; Z79.82 Long term (current) use of aspirin; Z79.899 Other long term (current) drug therapy; Z88.0 Allergy status to penicillin; Z98.42 Cataract extraction status, left eye; Z98.41 Cataract extraction status, right eye

== ENCOUNTER → 2019-01-28 | Outpatient (CLI) | payer BC, MEDICARE ==
[~2019-01-28] MED LIST changes: +ABIL20TA2 OR; -ACETAMINOPHEN 325 MG TAB PO; +ASPI81TA85 PO; +ATEN25TA OR; +ATEN50TA2 OR; +BABY81CH OR; +BREO1INH3 INH; +BREO1INH3 PO; +CIAL20TA PO; +CRES40TA OR; +CRES40TA PO; +FURO20TA2 OR; +FURO40TA2 PO; +LEVI20TA OR; +LISI10TA4 PO; +LISI2.5T OR; +LISI40TA OR; +LISI5TAB OR; +MAGN400T2 PO; +MELO15TA28 PO; +MELOPOW PO; +METO1TAB7 PO; +NICO21DI4 TD; +NITR0.4S SL; +NITR4TASL SL; +OMEP-221 PO; +OMEP20TA7 OR; +PAXI30TA OR; -PHENYLEPHRINE HCL 10 % OPHTH. SOL 5ML OD; +PLAV1TAB2 PO; +PLAV75TA2 OR; +SPIR1CAP INH; +TERA2CAP3 OR; +ZOLO100T PO; +colestipol PO
--- NOTE | 2019-01-28 09:46 | REP ---
Clinical: Abnormal lung findings. Comparison: 05/08/2018. Technique: Axial noncontrast images from the thoracic inlet to the upper abdomen with coronal and sagittal re-formations. Findings: Bilateral lung gibson are relatively well aerated, symmetric and essentially clear. Minimal lingular and left lower lobe scarring remains unchanged. No acute consolidation, significant nodule, or mass lesion appreciated. No pleural effusion. No pneumothorax. Tracheobronchial tree is patent. No adenopathy. Mediastinum demonstrates atherosclerotic changes to the thoracic aorta and coronary arteries along with evidence for prior coronary bypass. No cardiomegaly or pericardial effusion. Osseous structures are intact. Limited views of the upper abdomen demonstrates stable hepatic hypodensities compatible with cysts and chronic appearing perinephric stranding. Impression: 1. No acute mediastinal or pleuroparenchymal process. 2. Minimal chronic basilar changes. 3. Limited upper abdomen demonstrates stable hepatic cysts. Electronically Signed by Leandro Chavarria MD 01/28/2019 09:38 A
== END ==
LOC: M RAD 08:19
PROVIDERS: ATTEND Physician Assistant
DX: R91.8 Other nonspecific abnormal finding of lung field (principal)

== ENCOUNTER → 2019-07-20 | Outpatient (REF) | payer BC, MEDICARE ==
[2019-07-20 12:26] LABS: HEMATOCRIT 42.4 % (42.0-52.0); HEMOGLOBIN 13.7 g/dl (13.5-17.5); MEAN CORPUSCULAR HEMOGLOBIN 28.5 pg (27.0-33.0); MEAN CORPUSCULAR HGB CONC 32.3 g/dl (32.0-36.5); MEAN CORPUSCULAR VOLUME 88.1 fl (80.0-96.0); PLATELET COUNT, AUTOMATED 169 10^3/uL (150-450); RED BLOOD COUNT 4.81 10^6/uL (4.30-6.10)
[2019-07-20 13:02] LABS: ALT/SGPT 78 U/L (12-78); BILIRUBIN,TOTAL 0.5 MG/DL (0.2-1.0); BLOOD UREA NITROGEN 13 MG/DL (7-18); CALCIUM LEVEL 8.6 MG/DL (8.8-10.2); CARBON DIOXIDE LEVEL 26 MEQ/L (21-32); CHLORIDE LEVEL 103 MEQ/L (98-107); CHOLESTEROL LEVEL 138 MG/DL (<200); CHOLESTEROL RISK RATIO 2.029 (<5); FREE T4 0.81 NG/DL (0.76-1.46); GLOMERULAR FILTRATION RATE > 60.0 (>49); GLUCOSE, FASTING 90 MG/DL (70-100); HDL CHOLESTEROL 68 MG/DL (>40); LDL CHOLESTEROL 56 MG/DL (<100); NON-HDL-C 70 MG/DL; POTASSIUM SERUM 4.7 MEQ/L (3.5-5.1); SODIUM LEVEL 137 MEQ/L (136-145); TOTAL PROTEIN 6.8 GM/DL (6.4-8.2); TRIGLYCERIDES LEVEL 71 MG/DL (<150)
== END ==
LOC: M SFHCADAM 11:21
PROVIDERS: ATTEND Family Medicine
DX: Z12.5 Encounter for screening for malignant neoplasm of prostate (principal); I25.10 Atherosclerotic heart disease of native coronary artery without angina pectoris; I11.9 Hypertensive heart disease without heart failure; F32.89 Other specified depressive episodes; E78.5 Hyperlipidemia, unspecified
CPT/HCPCS: 80053; 80061; 84439; 84443; 85027; G0103

== ENCOUNTER → 2019-07-23 | Outpatient (CLI) | payer BC, MEDICARE ==
--- NOTE | 2019-07-23 11:15 | REP ---
REASON: Left hip pain. PRIORS: None. There is mild rather symmetric appearing hip joint space narrowing without prominent marginal osteophytosis or buttressing. There is no acute fracture, dislocation, or subluxation. Vascular clips are seen in the upper medial thigh. IMPRESSION: Mild chronic changes. Electronically Signed by Terry Ashley DO 07/23/2019 12:19 P
== END ==
LOC: M ADAMS 10:23
PROVIDERS: ATTEND Family Medicine
DX: M17.12 Unilateral primary osteoarthritis, left knee (principal)

== ENCOUNTER → 2019-11-03 | Outpatient (CLI) | payer BC, MEDICARE ==
--- NOTE | 2019-11-04 15:17 | SLEEPCENT ---
DATE OF STUDY: 11/03/2019 ORDERED BY: Leandro Foley Nocturnal polysomnography was performed for the titration of pressure therapy in this patient with obstructive sleep apnea syndrome. Apnea-hypopnea index 38.1. For testing, a ResMed AirFit F20 full face mask of medium size was used, 8 cm of water pressure were applied circuit, and the lights were extinguished. 7 hours and 33 minutes of data were reviewed. There were 348.5 minutes of sleep identified. Sleep latency was normal at 33 minutes. Rapid eye movement (REM) sleep was delayed at 393.5 minutes. Sleep architecture showed poor progression early in the study. Improvement was seen later on optimal pressure therapy. Overall sleep efficiency was 77.9%. The electrocardiogram showed a sinus rhythm with an average heart rate of 58 per minute. EEG showed normal waveforms for awake and sleep. No focal events were identified. Persistence of respiratory events prompted an increase in continuous positive airway pressure (CPAP) pressure to the optimal pressure of +16, with which the patient slept through REM without respiratory event or oxygen desaturation in the supine posture. There was some activity in the limb EMG leads, but limb movement arousal index was only 0.9. IMPRESSION: Obstructive sleep apnea syndrome (G47.33). RECOMMENDATION: Nightly use of pressure therapy 16 cm of water.
== END ==
LOC: M SLEEP 19:40
PROVIDERS: ATTEND Physician Assistant
DX: G47.33 Obstructive sleep apnea (adult) (pediatric) (principal)

== ENCOUNTER → 2020-02-08 | Outpatient (CLI) | payer BC, MEDICARE ==
--- NOTE | 2020-02-08 08:06 | REPVR ---
PROCEDURE INFORMATION: Exam: CT Chest Without Contrast Exam date and time: 02/08/2020 7:21 AM Age: 69 years old Clinical indication: Abnormal findings; Other: Abd finding; Additional info: Abn finding of lung TECHNIQUE: Imaging protocol: Computed tomography of the chest without contrast. 3D rendering: MIP and/or 3D reconstructed images were created by the technologist. Radiation optimization: All CT scans at this facility use at least one of these dose optimization techniques: automated exposure control; mA and/or kV adjustment per patient size (includes targeted exams where dose is matched to clinical indication); or iterative reconstruction. COMPARISON: CT Chest without contrast 01/28/2019 8:28 AM FINDINGS: Lungs: Bilateral dependent atelectasis. Pleural space: Unremarkable. No pneumothorax. No pleural effusion. Heart: Status post median sternotomy and CABG. Calcified aortic valve leaflets. Coarsely calcified mitral annulus. Mediastinum: Small hiatal hernia. Aorta: Atherosclerotic disease of the thoracic aorta. Lymph nodes: Scattered nonspecific subcentimeter mediastinal lymph nodes. Liver: Several simple cysts in the left hepatic lobe measuring up to 1.5 cm. Bones/joints: Multilevel degenerative disc disease of the thoracic spine. Soft tissues: Unremarkable. IMPRESSION: No acute findings. Electronically signed by: Robbi Ansari On 02/08/2020 08:06:20 AM
== END ==
LOC: M RAD 06:55
PROVIDERS: ATTEND Physician Assistant
DX: R91.8 Other nonspecific abnormal finding of lung field (principal)

== ENCOUNTER → 2020-03-24 | Outpatient (REF) | payer BC, MEDICARE ==
[2020-03-24 17:01] LABS: HEMATOCRIT 41.4 % (42.0-52.0); HEMOGLOBIN 13.1 g/dl (13.5-17.5); MEAN CORPUSCULAR HEMOGLOBIN 27.3 pg (27.0-33.0); MEAN CORPUSCULAR HGB CONC 31.6 g/dl (32.0-36.5); MEAN CORPUSCULAR VOLUME 86.3 fl (80.0-96.0); PLATELET COUNT, AUTOMATED 208 10^3/uL (150-450)
[2020-03-24 17:15] LABS: ALBUMIN 4.3 GM/DL (3.2-5.2); ALT/SGPT 32 U/L (12-78); BILIRUBIN,TOTAL 0.9 MG/DL (0.2-1.0); BLOOD UREA NITROGEN 18 MG/DL (7-18); CARBON DIOXIDE LEVEL 28 MEQ/L (21-32); CHLORIDE LEVEL 101 MEQ/L (98-107); CHOLESTEROL LEVEL 179 MG/DL (<200); CREATININE FOR GFR 0.94 MG/DL (0.70-1.30); GLOMERULAR FILTRATION RATE > 60.0 (>42); GLUCOSE, FASTING 95 MG/DL (70-100); HDL CHOLESTEROL 50 MG/DL (>40); LDL CHOLESTEROL 114 MG/DL (<100); NON-HDL-C 129 MG/DL; POTASSIUM SERUM 4.8 MEQ/L (3.5-5.1); SODIUM LEVEL 135 MEQ/L (136-145); TOTAL PROTEIN 7.5 GM/DL (6.4-8.2); TRIGLYCERIDES LEVEL 77 MG/DL (<150); TROPONIN I < 0.02 NG/ML (< 0.10)
== END ==
LOC: M SFHCADAM 11:35
PROVIDERS: ATTEND Family Medicine
DX: R07.9 Chest pain, unspecified (principal); I11.9 Hypertensive heart disease without heart failure; I25.10 Atherosclerotic heart disease of native coronary artery without angina pectoris; Z95.1 Presence of aortocoronary bypass graft; E78.5 Hyperlipidemia, unspecified

== ENCOUNTER → 2020-04-06 | Outpatient (REF) | payer BC, MEDICARE ==
[2020-04-06 18:39] LABS: BLOOD UREA NITROGEN 13 MG/DL (7-18); CALCIUM LEVEL 8.7 MG/DL (8.8-10.2); CARBON DIOXIDE LEVEL 29 MEQ/L (21-32); CHLORIDE LEVEL 85 MEQ/L (98-107); CREATININE FOR GFR 0.96 MG/DL (0.70-1.30); FERRITIN 155 NG/ML (26-388); FREE T4 0.97 NG/DL (0.76-1.46); GLOMERULAR FILTRATION RATE > 60.0 (>42); GLUCOSE, FASTING 99 MG/DL (70-100); IRON (FE) 66 UG/DL (65-175); MAGNESIUM LEVEL 1.8 MG/DL (1.8-2.4); POTASSIUM SERUM 4.9 MEQ/L (3.5-5.1); SODIUM LEVEL 123 MEQ/L (136-145)
[2020-04-06 18:43] LABS: FOLATE 6.6 NG/ML
[2020-04-06 19:04] LABS: VITAMIN B12 LEVEL 352 PG/ML
== END ==
LOC: M SFHCADAM 11:04
PROVIDERS: ATTEND Physician Assistant
DX: D64.9 Anemia, unspecified (principal); I49.5 Sick sinus syndrome; I11.9 Hypertensive heart disease without heart failure

== ENCOUNTER → 2020-04-13 | Outpatient (REF) | payer BC, MEDICARE ==
[2020-04-13 18:15] LABS: BLOOD UREA NITROGEN 11 MG/DL (7-18); CALCIUM LEVEL 8.5 MG/DL (8.8-10.2); CARBON DIOXIDE LEVEL 29 MEQ/L (21-32); CHLORIDE LEVEL 87 MEQ/L (98-107); CREATININE FOR GFR 0.91 MG/DL (0.70-1.30); GLOMERULAR FILTRATION RATE > 60.0 (>42); GLUCOSE, FASTING 92 MG/DL (70-100); POTASSIUM SERUM 4.2 MEQ/L (3.5-5.1); SODIUM LEVEL 123 MEQ/L (136-145)
== END ==
LOC: M SFHCADAM 13:32
PROVIDERS: ATTEND Physician Assistant
DX: E87.1 Hypo-osmolality and hyponatremia (principal)

== ENCOUNTER → 2020-10-19 | Outpatient (CLI) | payer BC, MEDICARE ==
[~2020-10-19] MED LIST changes: -ASPI81TA85 PO; +ASPI81TA86 PO; +ATEN25TA PO; +ECOT81TA5 PO; +PRAV20TA2 PO; +TADA20TA PO
== END ==
LOC: M LABSMTC 09:36
PROVIDERS: ATTEND Anesthesiology
DX: Z01.812 Encounter for preprocedural laboratory examination (principal); Z20.828 Contact with and (suspected) exposure to other viral communicable diseases

== ENCOUNTER 2020-10-24 09:03 | Day surgery (SDC) | payer BC, MEDICARE ==
[~2020-10-24] VITALS: Ht 177.8 cm; Wt 89.3 kg
[~2020-10-24 09:03] MED LIST changes: +NS 1,000 ML IV ONE
[2020-10-24] MEDS ORDERED: propofoL 200 MG/20 ML VIAL As Ordered ONE ×3 (10:07→10:54)
[2020-10-24] MEDS ORDERED: PHENYLephrine HCL 500 MCG/5 ML (100MCG/ML) SYRINGE (J2370) As Ordered ONE ×2 (10:38→10:54)
--- NOTE | 2020-10-24 11:02 | ROOR ---
Patient Name: William Randolph Procedure Date: 10/24/2020 10:05 AM Date of : 1950 Age: 70 Room: [facility] Gender: Male Note Status: Finalized Procedure: Colonoscopy Indications: Screening in patient at increased risk: Family history of 1st-degree relative with colorectal cancer Providers: Chintan Frederick MD Referring MD: Cecil Braun MD Requesting Provider: Medicines: Monitored Anesthesia Care Complications: No immediate complications. Procedure: Pre-Anesthesia Assessment: - Prior to the procedure, a History and Physical was performed, and patient medications and allergies were reviewed. The patient is competent. The risks and benefits of the procedure and the sedation options and risks were discussed with the patient. All questions were answered and informed consent was obtained. Patient identification and proposed procedure were verified by the physician, the nurse and the anesthesiologist in the procedure room. Respiratory Examination: clear to auscultation. Prophylactic Antibiotics: The patient does not require prophylactic antibiotics. Prior Anticoagulants: The patient has taken no previous anticoagulant or antiplatelet agents. ASA Grade Assessment: II - A patient with mild systemic disease. After reviewing the risks and benefits, the patient was deemed in satisfactory condition to undergo the procedure. The anesthesia plan was to use monitored anesthesia care (MAC). Immediately prior to administration of medications, the patient was re-assessed for adequacy to receive sedatives. The heart rate, respiratory rate, oxygen saturations, blood pressure, adequacy of pulmonary ventilation, and response to care were monitored throughout the procedure. The physical status of the patient was re-assessed after the procedure. The Colonoscope was introduced through the anus and advanced to the terminal ileum, with identification of the appendiceal orifice and IC valve. The colonoscopy was performed without difficulty. The patient tolerated the procedure well. The quality of the bowel preparation was good. The terminal ileum, ileocecal valve, appendiceal orifice, and rectum were photographed. Scope insertion time was 3 minutes. Scope withdrawal time was 9 minutes. The total duration of the procedure was 12 minutes. Findings: The perianal and digital rectal examinations were normal. The terminal ileum appeared normal. Two sessile polyps were found in the descending colon and ascending colon. The polyps were 4 to 10 mm in size. These polyps were removed with a hot snare. Resection and retrieval were complete. To close a defect after polypectomy, one hemostatic clip was successfully placed. There was no bleeding at the end of the procedure. Verification of patient identification for the specimen was done by the physician and nurse using the patient's name, date and medical record number. Estimated blood loss was minimal. Multiple small and large-mouthed diverticula were found from sigmoid to descending colon. There was no evidence of diverticular bleeding. Non-bleeding external and internal hemorrhoids were found during retroflexion. The hemorrhoids were medium-sized. A moderate amount of stool was found from sigmoid to ascending colon, interfering with visualization. Lavage of the area was performed using a large amount of sterile water, resulting in clearance with fair visualization. Impression: - The examined portion of the ileum was normal. - Two 4 to 10 mm polyps in the descending colon and in the ascending colon, removed with a hot snare. Resected and retrieved. Clip was placed. - Moderate diverticulosis from sigmoid to descending colon. There was no evidence of diverticular bleeding. - Non-bleeding external and internal hemorrhoids. - Stool from sigmoid to ascending colon. Recommendation: - The patient will be observed post-procedure, until all discharge criteria are met. - Patient has a contact number available for emergencies. The signs and symptoms of potential delayed complications were discussed with the patient. Return to normal activities tomorrow. Written discharge instructions were provided to the patient. - High fiber diet. - Continue present medications. - Await pathology results. - Repeat colonoscopy in 3 years for surveillance based on pathology results. - Telephone GI clinic for pathology results in 2 weeks. - Return to referring physician. Procedure Code(s): --- Professional --- 48702, Colonoscopy, flexible; with removal of tumor(s), polyp(s), or other lesion(s) by snare technique Diagnosis Code(s): --- Professional --- Z80.0, Family history of malignant neoplasm of digestive organs K64.8, Other hemorrhoids K63.5, Polyp of colon K57.30, Diverticulosis of large intestine without perforation or abscess without bleeding CPT copyright 2019 [employer]. All rights reserved. The codes documented in this report are preliminary and upon optical lathe operator review may be revised to meet current compliance requirements. Attending Participation: I personally performed the entire procedure. Chintan Frederick MD Chintan Frederick MD 10/24/2020 11:02:28 AM Electronically signed by Chintan Frederick MD Number of Addenda: 0 Note Initiated On: 10/24/2020 10:05 AM Estimated Blood Loss: Estimated blood loss: none.
[2020-10-24 11:13] VITALS: BP 127/78
== END 2020-10-24 11:14 | disposition home or self-care (01) ==
LOC: M OPP 09:03
PROVIDERS: ATTEND Internal Medicine Gastroenterology
DX: Z12.11 Encounter for screening for malignant neoplasm of colon (principal); Z80.0 Family history of malignant neoplasm of digestive organs; K63.5 Polyp of colon; K57.30 Diverticulosis of large intestine without perforation or abscess without bleeding; K64.8 Other hemorrhoids; I25.2 Old myocardial infarction; J44.9 Chronic obstructive pulmonary disease, unspecified; F17.210 Nicotine dependence, cigarettes, uncomplicated; Z79.82 Long term (current) use of aspirin; Z79.899 Other long term (current) drug therapy; Z95.810 Presence of automatic (implantable) cardiac defibrillator
CPT/HCPCS: 45385; 88305; J2370

== ENCOUNTER → 2021-02-08 | Outpatient (REF) | payer BC, MEDICARE ==
[~2021-02-08] MED LIST changes: +LISI10TA22 PO; -LISI10TA4 PO; -NS 1,000 ML IV ONE
[2021-02-08 17:24] LABS: HEMATOCRIT 39.1 % (42.0-52.0); HEMOGLOBIN 12.9 g/dl (13.5-17.5); MEAN CORPUSCULAR HEMOGLOBIN 29.7 pg (27.0-33.0); MEAN CORPUSCULAR VOLUME 90.1 fl (80.0-96.0); PLATELET COUNT, AUTOMATED 207 10^3/uL (150-450); RED BLOOD COUNT 4.34 10^6/uL (4.30-6.10); WHITE BLOOD COUNT 6.5 10^3/uL (4.0-10.0)
[2021-02-08 18:14] LABS: ALBUMIN 4.4 GM/DL (3.2-5.2); ALT/SGPT 31 U/L (12-78); BILIRUBIN,TOTAL 0.6 MG/DL (0.2-1.0); BLOOD UREA NITROGEN 19 MG/DL (7-18); CARBON DIOXIDE LEVEL 27 MEQ/L (21-32); CHLORIDE LEVEL 97 MEQ/L (98-107); CHOLESTEROL LEVEL 173 MG/DL (<200); CHOLESTEROL RISK RATIO 2.836 (<5); CREATININE FOR GFR 1.08 MG/DL (0.70-1.30); GLOMERULAR FILTRATION RATE > 60.0 (>42); GLUCOSE, FASTING 78 MG/DL (70-100); HDL CHOLESTEROL 61 MG/DL (>40); LDL CHOLESTEROL 90 MG/DL (<100); NON-HDL-C 112 MG/DL; POTASSIUM SERUM 5.5 MEQ/L (3.5-5.1); SODIUM LEVEL 129 MEQ/L (136-145); TOTAL PROTEIN 7.4 GM/DL (6.4-8.2); TRIGLYCERIDES LEVEL 110 MG/DL (<150)
== END ==
LOC: M SFHCADAM 15:33
PROVIDERS: ATTEND Family Medicine
DX: D64.9 Anemia, unspecified (principal); I11.9 Hypertensive heart disease without heart failure; E78.5 Hyperlipidemia, unspecified

== ENCOUNTER → 2021-02-10 | Outpatient (REF) | payer BC, MEDICARE ==
[2021-02-10 13:53] LABS: BLOOD UREA NITROGEN 22 MG/DL (7-18); CARBON DIOXIDE LEVEL 29 MEQ/L (21-32); CHLORIDE LEVEL 97 MEQ/L (98-107); CREATININE FOR GFR 1.22 MG/DL (0.70-1.30); GLOMERULAR FILTRATION RATE > 60.0 (>42); GLUCOSE, FASTING 111 MG/DL (70-100); POTASSIUM SERUM 5.6 MEQ/L (3.5-5.1); SODIUM LEVEL 128 MEQ/L (136-145)
== END ==
LOC: M LABDRWAD 12:42
PROVIDERS: ATTEND Nurse Practitioner Family
DX: I25.5 Ischemic cardiomyopathy (principal)

== ENCOUNTER → 2021-03-14 | Outpatient (CLI) | payer BC, MEDICARE ==
--- NOTE | 2021-03-14 11:34 | REP ---
INDICATION: LUMBAR SPINAL STENOSIS. COMPARISON: No recent prior similar studies. TECHNIQUE: Axial CT images with multiplanar reformations. FINDINGS: There is degenerative disc disease progressed at the L4-5 level with loss of disc height, endplate changes, anterior osteophytic spurring, and vacuum phenomena. There appears to be a canal stenosis at L2-3 level with osteophyte formation of from posterior. No evidence of fracture or malalignment. Soft tissues appear unremarkable. There is heavy atherosclerotic calcification of the aorta total and distal arterial vasculature. On the review of axial images, At L1-2 no significant canal or foraminal narrowing At L2-3 global disc bulge and facet hypertrophic degenerative changes with at least moderate canal stenosis, and [id number] bilateral foraminal narrowing. At L3-4 global disc bulge and ligamentum flavum infolding with at least moderate canal stenosis and moderate bilateral foraminal narrowing. At L4-5 ligamentum flavum infolding and disc-osteophyte complex formation with at least moderate canal stenosis and moderate bilateral foraminal narrowing. Facet osteophytes narrow the neural foramen bilaterally. At L5-S1 moderate canal narrowing and moderate bilateral foraminal narrowing is greater on the left. Facet osteophytes narrow the neural foramen bilaterally. There is atherosclerotic calcification of the aorta and distal arterial vasculature. IMPRESSION: 1. No fracture or malalignment. 2. Degenerative disc disease is progressed at the L4-5 level. 3. Canal stenosis appears significant at the L2-3 level and may be significant at the L3-4 and L4-5 levels. MRI may help to clarify. 4. Multilevel foraminal narrowing as described, also notable at the L4-5 and L5-S1 levels, moderate. <Electronically signed by Dirk Coyle > 03/14/21 [id number]
== END ==
LOC: M RAD 10:49
PROVIDERS: ATTEND Family Medicine
DX: M48.061 Spinal stenosis, lumbar region without neurogenic claudication (principal)

== ENCOUNTER → 2021-03-14 | Outpatient (CLI) | payer BC, MEDICARE ==
--- NOTE | 2021-03-15 07:42 | REP ---
INDICATION: NICOTINE DEPEND COMPARISON: Multiple examinations dating through 01/29/2018 TECHNIQUE: Axial noncontrast images from the thoracic inlet to the upper abdomen using low-dose lung screening technique (LDCT). FINDINGS: Lung gibson are well aerated and demonstrate minimal stable chronic age-related changes. No acute consolidation, significant nodule, or mass. No effusion or pneumothorax. Tracheobronchial tree is patent. Evidence for atherosclerotic disease and prior CABG. IMPRESSION: Lung rads category 1. No suspicious nodule or mass. Management recommendations include annual low-dose CT surveillance. <Electronically signed by Leandro Chavarria > 03/15/21 [id number]
== END ==
LOC: M RAD 10:53
PROVIDERS: ATTEND Physician Assistant
DX: F17.218 Nicotine dependence, cigarettes, with other nicotine-induced disorders (principal)

== ENCOUNTER → 2021-05-08 | Outpatient (REF) | payer BC, MEDICARE ==
[2021-05-08 13:37] LABS: BASO # 0.1 10^3/uL (0.0-0.2); EOS # 0.1 10^3/uL (0.0-0.5); EOS % 1.8 % (0.0-3.0); HEMATOCRIT 37.9 % (42.0-52.0); HEMOGLOBIN 12.7 g/dl (13.5-17.5); MEAN CORPUSCULAR HEMOGLOBIN 29.9 pg (27.0-33.0); MEAN CORPUSCULAR HGB CONC 33.5 g/dl (32.0-36.5); MEAN CORPUSCULAR VOLUME 89.2 fl (80.0-96.0); MONO # 0.6 10^3/uL (0.0-0.8); NEUTROPHILS # 4.4 10^3/uL (1.5-8.5); PLATELET COUNT, AUTOMATED 187 10^3/uL (150-450); RED BLOOD COUNT 4.25 10^6/uL (4.30-6.10); WHITE BLOOD COUNT 6.1 10^3/uL (4.0-10.0)
== END ==
LOC: M LABDRWAD 12:42
PROVIDERS: ATTEND Nurse Practitioner Family
DX: M48.02 Spinal stenosis, cervical region (principal)

== ENCOUNTER → 2021-05-15 | Outpatient (REF) | payer BC, MEDICARE ==
[2021-05-15 14:36] LABS: INR 0.99; PROTHROMBIN TIME 13.3 SECONDS (12.5-14.3)
[2021-05-15 15:06] LABS: BLOOD UREA NITROGEN 21 MG/DL (7-18); CALCIUM LEVEL 8.8 MG/DL (8.8-10.2); CARBON DIOXIDE LEVEL 28 MEQ/L (21-32); CHLORIDE LEVEL 92 MEQ/L (98-107); CREATININE FOR GFR 1.03 MG/DL (0.70-1.30); GLOMERULAR FILTRATION RATE > 60.0 (>42); GLUCOSE, FASTING 92 MG/DL (70-100); SODIUM LEVEL 126 MEQ/L (136-145)
== END ==
LOC: M LABDRWAD 13:55
PROVIDERS: ATTEND Nurse Practitioner Family
DX: M48.02 Spinal stenosis, cervical region (principal); I25.5 Ischemic cardiomyopathy

== ENCOUNTER → 2021-10-06 | Outpatient (CLI) | payer BC, MEDICARE ==
--- NOTE | 2021-10-06 13:24 | REP ---
INDICATION: DDD, SPINAL STENOSIS OF LUMBAR REGION, BACK PAIN. COMPARISON: None TECHNIQUE: Seven views FINDINGS: There is marginal osteophytosis seen bilaterally at every level. There is a slight levoconvex lumbar curve. The pedicles are intact bilaterally. There is anterior lipping at every level. There is moderate to severe disc space narrowing at L4-5 with moderate disc space narrowing at all other levels. There is air density in the the L4-5 disc space consistent with vacuum phenomena from degenerative disc disease. Vertebral body height and alignment is within normal limits. Bending views show no evidence of instability. There are degenerative facet joint changes present at every level bilaterally. IMPRESSION: Chronic changes as described above. <Electronically signed by Terry Ashley > 10/06/21 [id number]
== END ==
LOC: M ADAMS 10:04
DX: M48.062 Spinal stenosis, lumbar region with neurogenic claudication (principal); M51.36 Other intervertebral disc degeneration, lumbar region

== ENCOUNTER → 2021-10-18 | Outpatient (CLI) | payer BC, MEDICARE | LOC: M WHC 10:25 | PROVIDERS: ATTEND Orthopaedic Surgery | DX: M51.36 Other intervertebral disc degeneration, lumbar region (principal); M48.062 Spinal stenosis, lumbar region with neurogenic claudication ==

== ENCOUNTER → 2021-12-13 | Outpatient (REF) | payer BC, MEDICARE ==
[2021-12-13 12:52] LABS: HEMATOCRIT 38.8 % (42.0-52.0); HEMOGLOBIN 12.6 g/dl (13.5-17.5); MEAN CORPUSCULAR HEMOGLOBIN 30.1 pg (27.0-33.0); MEAN CORPUSCULAR HGB CONC 32.5 g/dl (32.0-36.5); MEAN CORPUSCULAR VOLUME 92.8 fl (80.0-96.0); PLATELET COUNT, AUTOMATED 203 10^3/uL (150-450); RED BLOOD COUNT 4.18 10^6/uL (4.30-6.10); WHITE BLOOD COUNT 6.1 10^3/uL (4.0-10.0)
[2021-12-13 13:04] LABS: INR 1.08; PROTHROMBIN TIME 14.5 SECONDS (12.7-14.5)
[2021-12-13 13:05] LABS: PARTIAL THROMBOPLASTIN TIME 30.1 SECONDS (25.9-37.0)
[2021-12-13 13:44] LABS: ALBUMIN 4.4 GM/DL (3.2-5.2); ALT/SGPT 32 U/L (12-78); BILIRUBIN,TOTAL 0.8 MG/DL (0.2-1.0); BLOOD UREA NITROGEN 21 MG/DL (7-18); CALCIUM LEVEL 8.8 MG/DL (8.8-10.2); CARBON DIOXIDE LEVEL 26 MEQ/L (21-32); CHLORIDE LEVEL 99 MEQ/L (98-107); CHOLESTEROL LEVEL 173 MG/DL (<200); CHOLESTEROL RISK RATIO 3.326 (<5); CREATININE FOR GFR 1.16 MG/DL (0.70-1.30); GLOMERULAR FILTRATION RATE > 60.0 (>42); GLUCOSE, FASTING 104 MG/DL (70-100); HDL CHOLESTEROL 52 MG/DL (>40); LDL CHOLESTEROL 106 MG/DL (<100); NON-HDL-C 121 MG/DL; POTASSIUM SERUM 5.4 MEQ/L (3.5-5.1); SODIUM LEVEL 133 MEQ/L (136-145); TOTAL PROTEIN 7.3 GM/DL (6.4-8.2); TRIGLYCERIDES LEVEL 74 MG/DL (<150)
== END ==
LOC: M SFHCADAM 11:14
PROVIDERS: ATTEND Family Medicine
DX: I25.10 Atherosclerotic heart disease of native coronary artery without angina pectoris (principal); I11.9 Hypertensive heart disease without heart failure; R74.8 Abnormal levels of other serum enzymes

== ENCOUNTER → 2022-03-27 | Outpatient (CLI) | payer BC, MEDICARE ==
[~2022-03-27] MED LIST changes: -OMEP-221 PO; +OMEP40CA5 PO
== END ==
LOC: M PAIN 09:30
PROVIDERS: ATTEND Nurse Practitioner Family
DX: M51.16 Intervertebral disc disorders with radiculopathy, lumbar region (principal); I25.10 Atherosclerotic heart disease of native coronary artery without angina pectoris; G47.30 Sleep apnea, unspecified; F31.9 Bipolar disorder, unspecified; N52.9 Male erectile dysfunction, unspecified; F43.10 Post-traumatic stress disorder, unspecified; J32.9 Chronic sinusitis, unspecified; E78.5 Hyperlipidemia, unspecified; I10 Essential (primary) hypertension; J44.9 Chronic obstructive pulmonary disease, unspecified; M54.2 Cervicalgia; R73.03 Prediabetes; N40.0 Benign prostatic hyperplasia without lower urinary tract symptoms; K76.0 Fatty (change of) liver, not elsewhere classified; F10.10 Alcohol abuse, uncomplicated; G44.009 Cluster headache syndrome, unspecified, not intractable; F17.210 Nicotine dependence, cigarettes, uncomplicated; Z79.82 Long term (current) use of aspirin; Z79.899 Other long term (current) drug therapy; Z79.02 Long term (current) use of antithrombotics/antiplatelets; Z88.0 Allergy status to penicillin; Z88.1 Allergy status to other antibiotic agents; Z88.8 Allergy status to other drugs, medicaments and biological substances

== ENCOUNTER → 2022-03-29 | Outpatient (CLI) | payer BC, MEDICARE | LOC: M RAD 10:01 | PROVIDERS: ATTEND Physician Assistant | DX: Z87.891 Personal history of nicotine dependence (principal) ==

== ENCOUNTER → 2022-05-08 | Outpatient (CLI) | payer BC, MEDICARE | LOC: M PAIN 10:15 | PROVIDERS: ATTEND Nurse Practitioner Family | DX: M51.16 Intervertebral disc disorders with radiculopathy, lumbar region (principal); I25.10 Atherosclerotic heart disease of native coronary artery without angina pectoris; I25.5 Ischemic cardiomyopathy; G47.30 Sleep apnea, unspecified; F31.9 Bipolar disorder, unspecified; N52.9 Male erectile dysfunction, unspecified; F43.10 Post-traumatic stress disorder, unspecified; J30.9 Allergic rhinitis, unspecified; E78.5 Hyperlipidemia, unspecified; I10 Essential (primary) hypertension; J44.9 Chronic obstructive pulmonary disease, unspecified; R73.03 Prediabetes; M54.2 Cervicalgia; N40.0 Benign prostatic hyperplasia without lower urinary tract symptoms; K76.0 Fatty (change of) liver, not elsewhere classified; G44.009 Cluster headache syndrome, unspecified, not intractable; F17.210 Nicotine dependence, cigarettes, uncomplicated; Z79.82 Long term (current) use of aspirin; Z79.899 Other long term (current) drug therapy; Z79.02 Long term (current) use of antithrombotics/antiplatelets; Z88.0 Allergy status to penicillin; Z88.1 Allergy status to other antibiotic agents; Z88.8 Allergy status to other drugs, medicaments and biological substances ==

== ENCOUNTER → 2022-06-12 | Outpatient (REF) | payer BC, MEDICARE ==
[2022-06-12 12:39] LABS: HEMATOCRIT 41.1 % (42.0-52.0); HEMOGLOBIN 13.6 g/dl (13.5-17.5); MEAN CORPUSCULAR HGB CONC 33.1 g/dl (32.0-36.5); MEAN CORPUSCULAR VOLUME 90.5 fl (80.0-96.0); PLATELET COUNT, AUTOMATED 201 10^3/uL (150-450); RED BLOOD COUNT 4.54 10^6/uL (4.30-6.10); WHITE BLOOD COUNT 6.8 10^3/uL (4.0-10.0)
[2022-06-12 16:33] LABS: ALBUMIN 4.3 GM/DL (3.2-5.2); ALT/SGPT 38 U/L (12-78); BILIRUBIN,TOTAL 0.8 MG/DL (0.2-1.0); BLOOD UREA NITROGEN 14 MG/DL (7-18); CALCIUM LEVEL 9.1 MG/DL (8.8-10.2); CARBON DIOXIDE LEVEL 28 MEQ/L (21-32); CHLORIDE LEVEL 93 MEQ/L (98-107); CHOLESTEROL LEVEL 156 MG/DL (<200); CREATININE FOR GFR 1.09 MG/DL (0.70-1.30); FREE T4 0.91 NG/DL (0.76-1.46); GLOMERULAR FILTRATION RATE > 60.0 (>42); GLUCOSE, FASTING 93 MG/DL (70-100); HDL CHOLESTEROL 60 MG/DL (>40); LDL CHOLESTEROL 77 MG/DL (<100); NON-HDL-C 96 MG/DL; POTASSIUM SERUM 4.9 MEQ/L (3.5-5.1); SODIUM LEVEL 126 MEQ/L (136-145); TOTAL PROTEIN 7.2 GM/DL (6.4-8.2); TRIGLYCERIDES LEVEL 95 MG/DL (<150)
[2022-06-12 23:58] LABS: HEMOGLOBIN A1c 5.2 %
[2022-06-13 00:45] LABS: FOLATE 9.1 NG/ML (>5.4); VITAMIN B12 LEVEL 324 PG/ML (247-911)
== END ==
LOC: M SFHCADAM 11:10
PROVIDERS: ATTEND Family Medicine
DX: R41.3 Other amnesia (principal); I25.10 Atherosclerotic heart disease of native coronary artery without angina pectoris

== ENCOUNTER → 2022-07-23 | Outpatient (CLI) | payer BC, MEDICARE | LOC: M LABSMTC 10:11 | PROVIDERS: ATTEND Anesthesiology | DX: Z01.812 Encounter for preprocedural laboratory examination (principal) ==

== ENCOUNTER → 2022-07-26 | Outpatient (CLI) | payer BC, MEDICARE ==
[~2022-07-26] MED LIST changes: +ISOVUE-M 300 61% 15ML VIAL As Ordered ONE; +LIDOCAINE 1% SDV 30ML VIAL As Ordered ONE; +methylPREDNISolone SUSP 40MG/ML 1ML VIAL (DEPO MEDROL) As Ordered ONE
== END ==
LOC: M PAIN 08:30
PROVIDERS: ATTEND Anesthesiology
DX: M51.17 Intervertebral disc disorders with radiculopathy, lumbosacral region (principal); I25.10 Atherosclerotic heart disease of native coronary artery without angina pectoris; I25.5 Ischemic cardiomyopathy; G47.30 Sleep apnea, unspecified; F31.9 Bipolar disorder, unspecified; N52.9 Male erectile dysfunction, unspecified; F90.9 Attention-deficit hyperactivity disorder, unspecified type; F43.10 Post-traumatic stress disorder, unspecified; J32.9 Chronic sinusitis, unspecified; E78.5 Hyperlipidemia, unspecified; I10 Essential (primary) hypertension; J44.9 Chronic obstructive pulmonary disease, unspecified; M19.90 Unspecified osteoarthritis, unspecified site; M54.2 Cervicalgia; R73.03 Prediabetes; L71.9 Rosacea, unspecified; N40.0 Benign prostatic hyperplasia without lower urinary tract symptoms; K76.0 Fatty (change of) liver, not elsewhere classified; F10.10 Alcohol abuse, uncomplicated; G44.009 Cluster headache syndrome, unspecified, not intractable; F17.210 Nicotine dependence, cigarettes, uncomplicated; Z95.0 Presence of cardiac pacemaker; Z95.5 Presence of coronary angioplasty implant and graft; Z98.1 Arthrodesis status; Z98.41 Cataract extraction status, right eye; Z98.42 Cataract extraction status, left eye; Z79.82 Long term (current) use of aspirin; Z79.02 Long term (current) use of antithrombotics/antiplatelets; Z79.899 Other long term (current) drug therapy; Z88.0 Allergy status to penicillin; Z88.1 Allergy status to other antibiotic agents; Z88.8 Allergy status to other drugs, medicaments and biological substances
CPT/HCPCS: 62323; J1030; Q9967

== ENCOUNTER → 2022-08-28 | Outpatient (CLI) | payer BC, MEDICARE ==
[~2022-08-28] MED LIST changes: -ISOVUE-M 300 61% 15ML VIAL As Ordered ONE; -LIDOCAINE 1% SDV 30ML VIAL As Ordered ONE; -methylPREDNISolone SUSP 40MG/ML 1ML VIAL (DEPO MEDROL) As Ordered ONE
== END ==
LOC: M PAIN 10:30
PROVIDERS: ATTEND Nurse Practitioner Family
DX: M51.16 Intervertebral disc disorders with radiculopathy, lumbar region (principal); M48.00 Spinal stenosis, site unspecified; G89.29 Other chronic pain; G47.30 Sleep apnea, unspecified; J44.9 Chronic obstructive pulmonary disease, unspecified; G43.909 Migraine, unspecified, not intractable, without status migrainosus; F17.210 Nicotine dependence, cigarettes, uncomplicated; Z95.0 Presence of cardiac pacemaker; Z86.59 Personal history of other mental and behavioral disorders; Z88.0 Allergy status to penicillin; Z88.1 Allergy status to other antibiotic agents; Z88.8 Allergy status to other drugs, medicaments and biological substances; Z79.01 Long term (current) use of anticoagulants; Z79.82 Long term (current) use of aspirin; Z79.899 Other long term (current) drug therapy

== ENCOUNTER → 2022-10-10 | Outpatient (REF) | payer BC, MEDICARE ==
[~2022-10-10] MED LIST changes: +CLOP75TA99 PO; -PLAV1TAB2 PO
[2022-10-10 18:53] LABS: BLOOD UREA NITROGEN 16 MG/DL (7-18); CALCIUM LEVEL 8.4 MG/DL (8.8-10.2); CARBON DIOXIDE LEVEL 25 MEQ/L (21-32); CHLORIDE LEVEL 100 MEQ/L (98-107); CHOLESTEROL LEVEL 133 MG/DL (<200); CHOLESTEROL RISK RATIO 2.375 (<5); CREATININE FOR GFR 1.12 MG/DL (0.70-1.30); GLOMERULAR FILTRATION RATE > 60.0 (>42); GLUCOSE, FASTING 87 MG/DL (70-100); HDL CHOLESTEROL 56 MG/DL (>40); LDL CHOLESTEROL 57 MG/DL (<100); NON-HDL-C 77 MG/DL; POTASSIUM SERUM 4.8 MEQ/L (3.5-5.1); SODIUM LEVEL 135 MEQ/L (136-145); TRIGLYCERIDES LEVEL 98 MG/DL (<150)
== END ==
LOC: M LABDRAWC 17:30
PROVIDERS: ATTEND Nurse Practitioner Family
DX: I10 Essential (primary) hypertension (principal); E78.2 Mixed hyperlipidemia

== ENCOUNTER → 2022-12-17 | Outpatient (CLI) | payer BC, MEDICARE | LOC: M LABSMTC 10:52 | PROVIDERS: ATTEND Anesthesiology | DX: Z01.812 Encounter for preprocedural laboratory examination (principal); Z11.52 Encounter for screening for COVID-19 ==

== ENCOUNTER → 2022-12-21 | Outpatient (CLI) | payer BC, MEDICARE ==
[~2022-12-21] MED LIST changes: +BUPIVACAINE HCL 0.25% 30ML VIAL As Ordered ONE; +ISOVUE-M 300 61% 15ML VIAL As Ordered ONE; +LIDOCAINE 1% SDV 30ML VIAL As Ordered ONE; +NORCO, ANEXSIA 5/325MG TABLET (HYDROcodone/ACETAMINOPHEN) As Ordered ONE; +diazePAM 2 MG TAB As Ordered ONE
== END ==
LOC: M PAIN 12:30
PROVIDERS: ATTEND Anesthesiology
DX: M51.16 Intervertebral disc disorders with radiculopathy, lumbar region (principal); M48.062 Spinal stenosis, lumbar region with neurogenic claudication; G89.29 Other chronic pain; G47.30 Sleep apnea, unspecified; I10 Essential (primary) hypertension; R73.03 Prediabetes; G43.909 Migraine, unspecified, not intractable, without status migrainosus; F17.210 Nicotine dependence, cigarettes, uncomplicated; Z95.0 Presence of cardiac pacemaker; Z86.59 Personal history of other mental and behavioral disorders; Z95.1 Presence of aortocoronary bypass graft; Z88.0 Allergy status to penicillin; Z88.1 Allergy status to other antibiotic agents; Z88.8 Allergy status to other drugs, medicaments and biological substances; Z79.01 Long term (current) use of anticoagulants; Z79.82 Long term (current) use of aspirin; Z79.899 Other long term (current) drug therapy
CPT/HCPCS: 64483; J1100; S0020

== ENCOUNTER → 2023-01-08 | Outpatient (CLI) | payer BC, MEDICARE ==
[~2023-01-08] MED LIST changes: -BUPIVACAINE HCL 0.25% 30ML VIAL As Ordered ONE; -ISOVUE-M 300 61% 15ML VIAL As Ordered ONE; -LIDOCAINE 1% SDV 30ML VIAL As Ordered ONE; -NORCO, ANEXSIA 5/325MG TABLET (HYDROcodone/ACETAMINOPHEN) As Ordered ONE; -diazePAM 2 MG TAB As Ordered ONE
== END ==
LOC: M PAIN 11:30
PROVIDERS: ATTEND Nurse Practitioner Family
DX: G89.29 Other chronic pain (principal); M51.16 Intervertebral disc disorders with radiculopathy, lumbar region; M48.062 Spinal stenosis, lumbar region with neurogenic claudication; G47.30 Sleep apnea, unspecified; I10 Essential (primary) hypertension; R73.03 Prediabetes; G43.909 Migraine, unspecified, not intractable, without status migrainosus; F17.210 Nicotine dependence, cigarettes, uncomplicated; Z95.0 Presence of cardiac pacemaker; Z86.59 Personal history of other mental and behavioral disorders; Z95.1 Presence of aortocoronary bypass graft; Z88.0 Allergy status to penicillin; Z88.1 Allergy status to other antibiotic agents; Z88.8 Allergy status to other drugs, medicaments and biological substances; Z79.01 Long term (current) use of anticoagulants; Z79.82 Long term (current) use of aspirin; Z79.899 Other long term (current) drug therapy

== ENCOUNTER → 2023-01-30 | Outpatient (REF) | payer BC, MEDICARE ==
[2023-01-30 16:53] LABS: BLOOD UREA NITROGEN 25 MG/DL (9-23); CALCIUM LEVEL 8.9 MG/DL (8.3-10.6); CARBON DIOXIDE LEVEL 28 MMOL/L (20-31); CHLORIDE LEVEL 99 MMOL/L (98-107); CREATININE FOR GFR 1.17 MG/DL (0.70-1.30); GLOMERULAR FILTRATION RATE > 60.0 (>42); GLUCOSE, FASTING 97 MG/DL (74-106); POTASSIUM SERUM 4.2 MMOL/L (3.5-5.1); SODIUM LEVEL 133 MMOL/L (136-145)
== END ==
LOC: M LABDRWAD 15:58
PROVIDERS: ATTEND Nurse Practitioner Family
DX: I25.5 Ischemic cardiomyopathy (principal)

== ENCOUNTER → 2023-02-27 | Outpatient (CLI) | payer BC, MEDICARE | LOC: M PAIN 10:15 | PROVIDERS: ATTEND Anesthesiology | DX: M48.062 Spinal stenosis, lumbar region with neurogenic claudication (principal); I25.10 Atherosclerotic heart disease of native coronary artery without angina pectoris; G47.30 Sleep apnea, unspecified; F31.9 Bipolar disorder, unspecified; N52.9 Male erectile dysfunction, unspecified; F43.10 Post-traumatic stress disorder, unspecified; J32.9 Chronic sinusitis, unspecified; E78.5 Hyperlipidemia, unspecified; I10 Essential (primary) hypertension; J44.9 Chronic obstructive pulmonary disease, unspecified; M54.50 Low back pain, unspecified; M54.2 Cervicalgia; R73.03 Prediabetes; N40.0 Benign prostatic hyperplasia without lower urinary tract symptoms; F10.10 Alcohol abuse, uncomplicated; L71.9 Rosacea, unspecified; F17.210 Nicotine dependence, cigarettes, uncomplicated; Z79.82 Long term (current) use of aspirin; Z79.02 Long term (current) use of antithrombotics/antiplatelets; Z79.899 Other long term (current) drug therapy; Z88.0 Allergy status to penicillin; Z88.1 Allergy status to other antibiotic agents; Z88.8 Allergy status to other drugs, medicaments and biological substances ==

== ENCOUNTER → 2023-04-03 | Outpatient (CLI) | payer BC, MEDICARE | LOC: M PAIN 14:30 | PROVIDERS: ATTEND Anesthesiology | DX: M43.06 Spondylolysis, lumbar region (principal); I25.10 Atherosclerotic heart disease of native coronary artery without angina pectoris; G47.30 Sleep apnea, unspecified; F32.A Depression, unspecified; N52.9 Male erectile dysfunction, unspecified; E78.5 Hyperlipidemia, unspecified; I10 Essential (primary) hypertension; J44.9 Chronic obstructive pulmonary disease, unspecified; R73.03 Prediabetes; K76.0 Fatty (change of) liver, not elsewhere classified; G43.909 Migraine, unspecified, not intractable, without status migrainosus; Z79.82 Long term (current) use of aspirin; Z79.02 Long term (current) use of antithrombotics/antiplatelets; Z79.899 Other long term (current) drug therapy; F17.210 Nicotine dependence, cigarettes, uncomplicated; Z88.0 Allergy status to penicillin; Z88.1 Allergy status to other antibiotic agents; Z88.8 Allergy status to other drugs, medicaments and biological substances ==

== ENCOUNTER → 2023-04-09 | Outpatient (CLI) | payer BC, MEDICARE | LOC: M PAIN 10:00 | PROVIDERS: ATTEND Anesthesiology | DX: M43.06 Spondylolysis, lumbar region (principal); I25.10 Atherosclerotic heart disease of native coronary artery without angina pectoris; I25.5 Ischemic cardiomyopathy; G47.30 Sleep apnea, unspecified; F31.9 Bipolar disorder, unspecified; N52.9 Male erectile dysfunction, unspecified; F43.10 Post-traumatic stress disorder, unspecified; E78.5 Hyperlipidemia, unspecified; I10 Essential (primary) hypertension; J44.9 Chronic obstructive pulmonary disease, unspecified; M19.90 Unspecified osteoarthritis, unspecified site; N40.0 Benign prostatic hyperplasia without lower urinary tract symptoms; R73.03 Prediabetes; F17.210 Nicotine dependence, cigarettes, uncomplicated; Z79.02 Long term (current) use of antithrombotics/antiplatelets; Z79.899 Other long term (current) drug therapy; Z88.0 Allergy status to penicillin; Z88.1 Allergy status to other antibiotic agents; Z88.8 Allergy status to other drugs, medicaments and biological substances ==

== ENCOUNTER → 2023-05-13 | Outpatient (CLI) | payer BC, MEDICARE | LOC: M RAD 09:49 | PROVIDERS: ATTEND Physician Assistant | DX: Z87.891 Personal history of nicotine dependence (principal) ==

== ENCOUNTER → 2023-06-28 | Outpatient (CLI) | payer BC, MEDICARE ==
[~2023-06-28] MED LIST changes: +ISOVUE-M 300 61% 15ML VIAL As Ordered ONE; +LIDOCAINE 1% SDV 30ML VIAL As Ordered ONE
== END ==
LOC: M PAIN 09:30
PROVIDERS: ATTEND Anesthesiology
DX: M47.816 Spondylosis without myelopathy or radiculopathy, lumbar region (principal); I25.10 Atherosclerotic heart disease of native coronary artery without angina pectoris; G47.30 Sleep apnea, unspecified; F31.9 Bipolar disorder, unspecified; N52.9 Male erectile dysfunction, unspecified; J32.9 Chronic sinusitis, unspecified; E78.5 Hyperlipidemia, unspecified; I10 Essential (primary) hypertension; J44.9 Chronic obstructive pulmonary disease, unspecified; M19.90 Unspecified osteoarthritis, unspecified site; M54.2 Cervicalgia; G89.29 Other chronic pain; M54.50 Low back pain, unspecified; R73.03 Prediabetes; N40.0 Benign prostatic hyperplasia without lower urinary tract symptoms; K76.0 Fatty (change of) liver, not elsewhere classified; F10.10 Alcohol abuse, uncomplicated; G43.909 Migraine, unspecified, not intractable, without status migrainosus; F17.210 Nicotine dependence, cigarettes, uncomplicated; Z79.02 Long term (current) use of antithrombotics/antiplatelets; Z79.82 Long term (current) use of aspirin; Z79.899 Other long term (current) drug therapy; Z88.0 Allergy status to penicillin; Z88.1 Allergy status to other antibiotic agents; Z88.8 Allergy status to other drugs, medicaments and biological substances
CPT/HCPCS: 64493; 64494; J0665; Q9967

== ENCOUNTER 2023-08-13 14:47 | Emergency (ER) | payer BC, MEDICARE ==
[~2023-08-13] VITALS: Ht 172.7 cm; Wt 97.4 kg
[~2023-08-13 14:47] MED LIST changes: -ISOVUE-M 300 61% 15ML VIAL As Ordered ONE; -LIDOCAINE 1% SDV 30ML VIAL As Ordered ONE
[2023-08-13 15:36] LABS: BASO # 0.1 10^3/uL (0.0-0.2); BASO % 0.7 % (0.0-1.0); EOS # 0.1 10^3/uL (0.0-0.5); EOS % 1.3 % (0.0-3.0); HEMOGLOBIN 11.3 g/dl (13.5-17.5); LYMPH # 0.7 10^3/uL (1.5-5.0); LYMPH % 10.1 % (24.0-44.0); MEAN CORPUSCULAR HEMOGLOBIN 29.9 pg (27.0-33.0); MEAN CORPUSCULAR HGB CONC 33.2 g/dl (32.0-36.5); MEAN CORPUSCULAR VOLUME 89.9 fl (80.0-96.0); MONO # 0.6 10^3/uL (0.0-0.8); MONO % 8.5 % (2.0-8.0); NEUTROPHILS # 5.3 10^3/uL (1.5-8.5); NEUTROPHILS % 78.8 % (36.0-66.0); PLATELET COUNT, AUTOMATED 183 10^3/uL (150-450); RED BLOOD COUNT 3.78 10^6/uL (4.30-6.10); WHITE BLOOD COUNT 6.7 10^3/uL (4.0-10.0)
[2023-08-13 15:59] LABS: ALBUMIN 3.2 G/DL (3.2-5.2); ALKALINE PHOSPHATASE 87 U/L (46-116); ALT/SGPT 27 U/L (7.0-40); AST/SGOT 26 U/L (<34); BILIRUBIN,DIRECT 0.2 MG/DL (<0.4); BILIRUBIN,TOTAL 0.4 MG/DL (0.3-1.2); BLOOD UREA NITROGEN 15 MG/DL (9-23); CALCIUM LEVEL 8.3 MG/DL (8.3-10.6); CARBON DIOXIDE LEVEL 24 MMOL/L (20-31); CHLORIDE LEVEL 95 MMOL/L (98-107); CK-MB VALUE MASS 3.6 NG/ML (<3.6); CREATININE FOR GFR 0.88 MG/DL (0.70-1.30); GLOMERULAR FILTRATION RATE > 60.0 (>42); GLUCOSE, FASTING 88 MG/DL (74-106); POTASSIUM SERUM 4.7 MMOL/L (3.5-5.1); SODIUM LEVEL 127 MMOL/L (136-145); TOTAL PROTEIN 6.3 G/DL (5.7-8.2)
[2023-08-13 16:01] LABS: CPK CREATINE PHOSPHOKINASE 216 U/L (46-171); MB/CK RELATIVE INDEX 1.66 (< OR =4)
[2023-08-13 17:13] LABS: CK-MB VALUE MASS 2.9 NG/ML (<3.6)
[2023-08-13 17:16] LABS: MB/CK RELATIVE INDEX 1.5 (< OR =4)
[2023-08-13] MEDS ORDERED: ISOVUE-370 76% 100ML VIAL As Ordered ONE (17:29)
[2023-08-13 19:20] VITALS: BP 148/68; TEMP 98.4; O2SAT 92
[2023-08-13] MEDS ORDERED: LevoFLOXacin 750 MG TABLET PO ONE (19:50)
[2023-08-13] MEDS ORDERED: predniSONE 20 MG TAB PO ONE (19:50)
[2023-08-13] MEDS ORDERED: LEVO1TAB40 PO (19:53)
[2023-08-13] MEDS ORDERED: PRED10TA2 PO (19:53)
[2023-08-13 20:04] VITALS: O2SAT 85
== END 2023-08-13 20:21 | disposition home or self-care (01) ==
LOC: M ED 14:47
DX: J18.9 Pneumonia, unspecified organism (principal); I49.8 Other specified cardiac arrhythmias; I25.2 Old myocardial infarction; I45.9 Conduction disorder, unspecified; I10 Essential (primary) hypertension; E78.5 Hyperlipidemia, unspecified; K21.9 Gastro-esophageal reflux disease without esophagitis; J44.9 Chronic obstructive pulmonary disease, unspecified; F17.200 Nicotine dependence, unspecified, uncomplicated; Z86.79 Personal history of other diseases of the circulatory system; Z88.0 Allergy status to penicillin; Z88.8 Allergy status to other drugs, medicaments and biological substances; Z79.82 Long term (current) use of aspirin; Z79.83 Long term (current) use of bisphosphonates; Z79.811 Long term (current) use of aromatase inhibitors; Z79.899 Other long term (current) drug therapy
CPT/HCPCS: 36415; 71045; 71275; 80048; 80076; 82550; 82553; 83880; 84484; 85025; 87486; 87581; 87633; 87798; 93005; 93041; 94760; 99285; J7512; Q9967

== ENCOUNTER → 2023-09-04 | Outpatient (CLI) | payer BC, MEDICARE ==
[~2023-09-04] MED LIST changes: +LEVO1TAB40 PO; +PRED10TA2 PO
== END ==
LOC: M PAIN 14:15
PROVIDERS: ATTEND Anesthesiology
DX: M48.062 Spinal stenosis, lumbar region with neurogenic claudication (principal); R26.81 Unsteadiness on feet; R69 Illness, unspecified; G89.29 Other chronic pain; I25.10 Atherosclerotic heart disease of native coronary artery without angina pectoris; G47.30 Sleep apnea, unspecified; F31.9 Bipolar disorder, unspecified; F43.10 Post-traumatic stress disorder, unspecified; E78.5 Hyperlipidemia, unspecified; I10 Essential (primary) hypertension; J32.9 Chronic sinusitis, unspecified; M54.50 Low back pain, unspecified; M54.2 Cervicalgia; R73.03 Prediabetes; L71.9 Rosacea, unspecified; N40.0 Benign prostatic hyperplasia without lower urinary tract symptoms; F17.210 Nicotine dependence, cigarettes, uncomplicated; Z79.82 Long term (current) use of aspirin; Z79.02 Long term (current) use of antithrombotics/antiplatelets; Z79.899 Other long term (current) drug therapy; Z88.0 Allergy status to penicillin; Z88.1 Allergy status to other antibiotic agents; Z88.8 Allergy status to other drugs, medicaments and biological substances

== ENCOUNTER → 2023-09-18 | Outpatient (CLI) | payer BC, MEDICARE | LOC: M PLAIMG 10:07 | PROVIDERS: ATTEND Family Medicine | DX: J18.9 Pneumonia, unspecified organism (principal); I11.9 Hypertensive heart disease without heart failure ==

== ENCOUNTER → 2023-09-26 | Outpatient (CLI) | payer BC, MEDICARE | LOC: M PLAIMG 10:35 | PROVIDERS: ATTEND Anesthesiology | DX: M48.062 Spinal stenosis, lumbar region with neurogenic claudication (principal) ==

== ENCOUNTER → 2023-10-15 | Outpatient (REF) | payer BC, MEDICARE ==
[2023-10-15 14:38] LABS: BLOOD UREA NITROGEN 15 MG/DL (9-23); CALCIUM LEVEL 8.6 MG/DL (8.3-10.6); CARBON DIOXIDE LEVEL 28 MMOL/L (20-31); CHLORIDE LEVEL 96 MMOL/L (98-107); CREATININE FOR GFR 1.03 MG/DL (0.70-1.30); GLOMERULAR FILTRATION RATE > 60.0 (>42); GLUCOSE, FASTING 87 MG/DL (74-106); POTASSIUM SERUM 4.9 MMOL/L (3.5-5.1); SODIUM LEVEL 131 MMOL/L (136-145)
== END ==
LOC: M LABDRWAD 13:22
PROVIDERS: ATTEND Nurse Practitioner Family
DX: I25.5 Ischemic cardiomyopathy (principal)

== ENCOUNTER → 2023-11-04 | Outpatient (CLI) | payer BC, MEDICARE | LOC: M PLAIMG 14:39 | PROVIDERS: ATTEND Psychiatry & Neurology Neurology | DX: I63.9 Cerebral infarction, unspecified (principal); R20.2 Paresthesia of skin; R53.1 Weakness ==

== ENCOUNTER → 2024-01-10 | Outpatient (CLI) | payer BC, MEDICARE | LOC: M PAIN 11:15 | PROVIDERS: ATTEND Nurse Practitioner Family | DX: M25.551 Pain in right hip (principal); M25.552 Pain in left hip; M48.061 Spinal stenosis, lumbar region without neurogenic claudication; G57.93 Unspecified mononeuropathy of bilateral lower limbs; G89.29 Other chronic pain; I25.10 Atherosclerotic heart disease of native coronary artery without angina pectoris; G47.30 Sleep apnea, unspecified; F31.9 Bipolar disorder, unspecified; F43.10 Post-traumatic stress disorder, unspecified; E78.5 Hyperlipidemia, unspecified; I10 Essential (primary) hypertension; M54.2 Cervicalgia; M54.50 Low back pain, unspecified; R73.03 Prediabetes; N40.0 Benign prostatic hyperplasia without lower urinary tract symptoms; F17.210 Nicotine dependence, cigarettes, uncomplicated; Z79.02 Long term (current) use of antithrombotics/antiplatelets; Z79.899 Other long term (current) drug therapy; Z88.0 Allergy status to penicillin; Z88.1 Allergy status to other antibiotic agents; Z88.8 Allergy status to other drugs, medicaments and biological substances ==

== ENCOUNTER → 2024-01-24 | Outpatient (CLI) | payer BC, MEDICARE | LOC: M RAD 14:18 | PROVIDERS: ATTEND Nurse Practitioner Family | DX: M25.531 Pain in right wrist (principal) ==

== ENCOUNTER → 2024-01-29 | Outpatient (CLI) | payer BC, MEDICARE | LOC: M PAIN 11:15 | PROVIDERS: ATTEND Anesthesiology | DX: M48.062 Spinal stenosis, lumbar region with neurogenic claudication (principal); G89.29 Other chronic pain; I25.10 Atherosclerotic heart disease of native coronary artery without angina pectoris; G47.30 Sleep apnea, unspecified; F31.9 Bipolar disorder, unspecified; E78.5 Hyperlipidemia, unspecified; I10 Essential (primary) hypertension; M54.2 Cervicalgia; M54.50 Low back pain, unspecified; R73.03 Prediabetes; F17.210 Nicotine dependence, cigarettes, uncomplicated; Z79.82 Long term (current) use of aspirin; Z79.899 Other long term (current) drug therapy; Z79.02 Long term (current) use of antithrombotics/antiplatelets; Z88.0 Allergy status to penicillin; Z88.1 Allergy status to other antibiotic agents; Z88.8 Allergy status to other drugs, medicaments and biological substances | CPT/HCPCS: 76000; G0463 ==

== ENCOUNTER → 2024-01-30 | Outpatient (REF) | payer BC, MEDICARE ==
[2024-01-30 17:45] LABS: HEMATOCRIT 39.6 % (42.0-52.0); HEMOGLOBIN 13.2 g/dl (13.5-17.5); MEAN CORPUSCULAR HEMOGLOBIN 31.1 pg (27.0-33.0); MEAN CORPUSCULAR HGB CONC 33.3 g/dl (32.0-36.5); MEAN CORPUSCULAR VOLUME 93.2 fl (80.0-96.0); PLATELET COUNT, AUTOMATED 161 10^3/uL (150-450); RED BLOOD COUNT 4.25 10^6/uL (4.30-6.10); WHITE BLOOD COUNT 6.1 10^3/uL (4.0-10.0)
[2024-01-30 18:05] LABS: HEMOGLOBIN A1c 4.9 % (4.0-6.0)
[2024-01-30 18:16] LABS: ALBUMIN 4.2 G/DL (3.2-5.2); ALKALINE PHOSPHATASE 79 U/L (46-116); ALT/SGPT 27 U/L (7.0-40); AST/SGOT 24 U/L (<34); BILIRUBIN,TOTAL 1.2 MG/DL (0.3-1.2); BLOOD UREA NITROGEN 14 MG/DL (9-23); CALCIUM LEVEL 8.7 MG/DL (8.3-10.6); CARBON DIOXIDE LEVEL 26 MMOL/L (20-31); CHLORIDE LEVEL 97 MMOL/L (98-107); CHOLESTEROL LEVEL 121 MG/DL (<200); CREATININE FOR GFR 1.05 MG/DL (0.70-1.30); GLOMERULAR FILTRATION RATE > 60.0 (>42); GLUCOSE, FASTING 80 MG/DL (74-106); HDL CHOLESTEROL 60.2 MG/DL (>40); LDL CHOLESTEROL 50.2 MG/DL (<100); NON-HDL-C 60.8 MG/DL; SODIUM LEVEL 129 MMOL/L (136-145); TOTAL PROTEIN 6.8 G/DL (5.7-8.2); TRIGLYCERIDES LEVEL 53 MG/DL (<150)
[2024-01-30 18:17] LABS: FREE T4 1.03 NG/DL (0.89-1.76); THYROID STIMULATING HORMONE 1.476 uIU/ML (0.55-4.78)
== END ==
LOC: M SFHCADAM 13:53
PROVIDERS: ATTEND Family Medicine
DX: H57.89 Other specified disorders of eye and adnexa (principal); I11.0 Hypertensive heart disease with heart failure; G57.93 Unspecified mononeuropathy of bilateral lower limbs; I25.10 Atherosclerotic heart disease of native coronary artery without angina pectoris

== ENCOUNTER → 2024-04-21 | Outpatient (REF) | payer BC, MEDICARE | LOC: M SFHCPLAZ 12:07 | PROVIDERS: ATTEND Physician Assistant Medical | DX: J06.9 Acute upper respiratory infection, unspecified (principal); R53.81 Other malaise; R53.83 Other fatigue ==

== ENCOUNTER → 2024-04-22 | Outpatient (REF) | payer BC, MEDICARE ==
[2024-04-22 18:07] LABS: BASO % 0.8 % (0.0-1.0); EOS # 0.1 10^3/uL (0.0-0.5); EOS % 2.4 % (0.0-3.0); HEMATOCRIT 40.8 % (42.0-52.0); HEMOGLOBIN 13.7 g/dl (13.5-17.5); LYMPH # 0.8 10^3/uL (1.5-5.0); LYMPH % 21.5 % (24.0-44.0); MEAN CORPUSCULAR HEMOGLOBIN 30.9 pg (27.0-33.0); MEAN CORPUSCULAR HGB CONC 33.6 g/dl (32.0-36.5); MEAN CORPUSCULAR VOLUME 91.9 fl (80.0-96.0); MONO # 0.4 10^3/uL (0.0-0.8); MONO % 10.1 % (2.0-8.0); NEUTROPHILS # 2.4 10^3/uL (1.5-8.5); NEUTROPHILS % 64.9 % (36.0-66.0); PLATELET COUNT, AUTOMATED 111 10^3/uL (150-450); RED BLOOD COUNT 4.44 10^6/uL (4.30-6.10); WHITE BLOOD COUNT 3.7 10^3/uL (4.0-10.0)
== END ==
LOC: M SFHCPLAZ 13:12
PROVIDERS: ATTEND Physician Assistant Medical
DX: J06.9 Acute upper respiratory infection, unspecified (principal); R53.81 Other malaise; R53.83 Other fatigue

== ENCOUNTER → 2024-04-22 | Outpatient (REF) | payer BC, MEDICARE ==
[2024-04-22 18:10] LABS: CALCIUM LEVEL 8.6 MG/DL (8.3-10.6); CREATININE FOR GFR 1.26 MG/DL (0.70-1.30); GLOMERULAR FILTRATION RATE 59.6 (>42); POTASSIUM SERUM 4.3 MMOL/L (3.5-5.1)
== END ==
LOC: M LABDRAWC 17:25
PROVIDERS: ATTEND Internal Medicine Cardiovascular Disease
DX: I25.810 Atherosclerosis of coronary artery bypass graft(s) without angina pectoris (principal); I25.5 Ischemic cardiomyopathy

== ENCOUNTER → 2024-05-05 | Outpatient (CLI) | payer BC, MEDICARE ==
[2024-05-05 15:25] LABS: BASO % 0.8 % (0.0-1.0); EOS # 0.1 10^3/uL (0.0-0.5); EOS % 1.3 % (0.0-3.0); HEMATOCRIT 39.4 % (42.0-52.0); HEMOGLOBIN 12.9 g/dl (13.5-17.5); LYMPH # 0.8 10^3/uL (1.5-5.0); LYMPH % 14.8 % (24.0-44.0); MEAN CORPUSCULAR HEMOGLOBIN 30.7 pg (27.0-33.0); MEAN CORPUSCULAR HGB CONC 32.7 g/dl (32.0-36.5); MEAN CORPUSCULAR VOLUME 93.8 fl (80.0-96.0); MONO # 0.4 10^3/uL (0.0-0.8); MONO % 6.9 % (2.0-8.0); NEUTROPHILS # 3.9 10^3/uL (1.5-8.5); NEUTROPHILS % 75.8 % (36.0-66.0); PLATELET COUNT, AUTOMATED 131 10^3/uL (150-450); WHITE BLOOD COUNT 5.2 10^3/uL (4.0-10.0)
== END ==
LOC: M PLAIMG 12:03
PROVIDERS: ATTEND Physician Assistant Medical
DX: Z72.0 Tobacco use (principal); J44.9 Chronic obstructive pulmonary disease, unspecified; I11.0 Hypertensive heart disease with heart failure

== ENCOUNTER → 2024-05-13 | Outpatient (CLI) | payer BC, MEDICARE ==
[~2024-05-13] MED LIST changes: +ISOVUE-370 76% 100ML VIAL ONE
== END ==
LOC: M PLAIMG 08:53
PROVIDERS: ATTEND Physician Assistant Medical
DX: I11.0 Hypertensive heart disease with heart failure (principal); I50.9 Heart failure, unspecified
CPT/HCPCS: 71275; Q9967

== ENCOUNTER → 2024-09-09 | Outpatient (REF) | payer BC, MEDICARE ==
[~2024-09-09] MED LIST changes: -ISOVUE-370 76% 100ML VIAL ONE
[2024-09-09 18:17] LABS: HEMATOCRIT 43.4 % (42.0-52.0); HEMOGLOBIN 14.5 g/dl (13.5-17.5); MEAN CORPUSCULAR HEMOGLOBIN 32.4 pg (27.0-33.0); MEAN CORPUSCULAR HGB CONC 33.4 g/dl (32.0-36.5); MEAN CORPUSCULAR VOLUME 97.1 fl (80.0-96.0); PLATELET COUNT, AUTOMATED 141 10^3/uL (150-450); RED BLOOD COUNT 4.47 10^6/uL (4.30-6.10); WHITE BLOOD COUNT 8.4 10^3/uL (4.0-10.0)
[2024-09-09 18:20] LABS: BILIRUBIN,TOTAL 0.6 MG/DL (0.3-1.2); CALCIUM LEVEL 9.2 MG/DL (8.3-10.6); CHOLESTEROL RISK RATIO 2.24 (<5); CREATININE FOR GFR 1.26 MG/DL (0.70-1.30); GLOMERULAR FILTRATION RATE 59.4 (>42); HDL CHOLESTEROL 58.8 MG/DL (>40); LDL CHOLESTEROL 47.2 MG/DL (<100); NON-HDL-C 73.2 MG/DL; POTASSIUM SERUM 4.4 MMOL/L (3.5-5.1); TOTAL PROTEIN 6.9 G/DL (5.7-8.2)
== END ==
LOC: M SFHCADAM 11:19
PROVIDERS: ATTEND Family Medicine
DX: I11.0 Hypertensive heart disease with heart failure (principal); I25.10 Atherosclerotic heart disease of native coronary artery without angina pectoris; E78.5 Hyperlipidemia, unspecified; Z95.1 Presence of aortocoronary bypass graft; I50.9 Heart failure, unspecified

== ENCOUNTER 2024-09-21 12:20 | Emergency (ER) | payer BC, MEDICARE ==
[~2024-09-21] VITALS: Ht 172.7 cm; Wt 100.8 kg
[2024-09-21] MEDS: LIDOCAINE 2% MDV 20ML VIAL SC ONE (15:00)
[2024-09-21] MEDS: BOOSTRIX VACCINE (TETANUS/DIPHTH/ACEL. PERTUSSIS) 0.5ML SYR IM ONE (15:35)
[2024-09-21 16:36] VITALS: BP 160/72; TEMP 97.1; O2SAT 97
== END 2024-09-21 16:37 | disposition home or self-care (01) ==
LOC: M ED 12:20
DX: S61.217A Laceration without foreign body of left little finger without damage to nail, initial encounter (principal); Y92.410 Unspecified street and highway as the place of occurrence of the external cause; Y93.9 Activity, unspecified; Y99.9 Unspecified external cause status; W01.198A Fall on same level from slipping, tripping and stumbling with subsequent striking against other object, initial encounter; I25.2 Old myocardial infarction; I10 Essential (primary) hypertension; E78.5 Hyperlipidemia, unspecified; J44.9 Chronic obstructive pulmonary disease, unspecified; Z23 Encounter for immunization; Z88.0 Allergy status to penicillin; Z88.8 Allergy status to other drugs, medicaments and biological substances; Z79.1 Long term (current) use of non-steroidal anti-inflammatories (NSAID); Z79.52 Long term (current) use of systemic steroids; Z79.899 Other long term (current) drug therapy

== ENCOUNTER → 2024-09-30 | Outpatient (CLI) | payer BC, MEDICARE | LOC: M LABDRWAD 14:10 | PROVIDERS: ATTEND Nurse Practitioner Acute Care | DX: I25.5 Ischemic cardiomyopathy (principal) ==

== ENCOUNTER → 2024-09-30 | Outpatient (CLI) | payer BC, MEDICARE ==
[2024-09-30 18:46] LABS: FOLATE 11.5 NG/ML (>5.4)
== END ==
LOC: M LABDRWAD 14:05
PROVIDERS: ATTEND Psychiatry & Neurology Neurology
DX: D50.9 Iron deficiency anemia, unspecified (principal); R26.89 Other abnormalities of gait and mobility

== ENCOUNTER → 2025-03-17 | Outpatient (REF) | payer BC, MEDICARE ==
[2025-03-17 17:28] LABS: HEMATOCRIT 38.8 % (42.0-52.0); HEMOGLOBIN 12.5 g/dl (13.5-17.5); MEAN CORPUSCULAR HEMOGLOBIN 31.4 pg (27.0-33.0); MEAN CORPUSCULAR HGB CONC 32.2 g/dl (32.0-36.5); MEAN CORPUSCULAR VOLUME 97.5 fl (80.0-96.0); PLATELET COUNT, AUTOMATED 155 10^3/uL (150-450); RED BLOOD COUNT 3.98 10^6/uL (4.30-6.10); WHITE BLOOD COUNT 7.7 10^3/uL (4.0-10.0)
[2025-03-17 17:46] LABS: ALBUMIN 3.9 G/DL (3.2-5.2); BILIRUBIN,TOTAL 0.6 MG/DL (0.3-1.2); CALCIUM LEVEL 8.8 MG/DL (8.3-10.6); CHOLESTEROL RISK RATIO 2.43 (<5); CREATININE FOR GFR 1.68 MG/DL (0.70-1.30); FREE T4 1.11 NG/DL (0.89-1.76); GLOMERULAR FILTRATION RATE 42.1 (>42); HDL CHOLESTEROL 43.6 MG/DL (>40); LDL CHOLESTEROL 43.4 MG/DL (<100); NON-HDL-C 62.4 MG/DL; POTASSIUM SERUM 5.1 MMOL/L (3.5-5.1); THYROID STIMULATING HORMONE 2.415 uIU/ML (0.55-4.78); TOTAL PROTEIN 6.5 G/DL (5.7-8.2)
[2025-03-17 17:47] LABS: FOLATE 6.89 NG/ML (>5.4)
[2025-03-17 18:12] LABS: HEMOGLOBIN A1c 4.8 % (4.0-6.0)
== END ==
LOC: M SFHCADAM 11:27
PROVIDERS: ATTEND Family Medicine
DX: I25.10 Atherosclerotic heart disease of native coronary artery without angina pectoris (principal); E87.1 Hypo-osmolality and hyponatremia; Z13.1 Encounter for screening for diabetes mellitus; G63 Polyneuropathy in diseases classified elsewhere

== ENCOUNTER → 2025-03-17 | Outpatient (CLI) | payer BC, MEDICARE | LOC: M ADAMS 11:39 | PROVIDERS: ATTEND Family Medicine | DX: S93.402A Sprain of unspecified ligament of left ankle, initial encounter (principal); W18.30XA Fall on same level, unspecified, initial encounter; Y92.009 Unspecified place in unspecified non-institutional (private) residence as the place of occurrence of the external cause ==

== ENCOUNTER → 2025-04-13 | Outpatient (REF) | payer BC, MEDICARE ==
[2025-04-13 14:21] LABS: ALBUMIN 4.2 G/DL (3.2-5.2); BILIRUBIN,TOTAL 0.7 MG/DL (0.3-1.2); CALCIUM LEVEL 8.9 MG/DL (8.3-10.6); CREATININE FOR GFR 1.68 MG/DL (0.70-1.30); GLOMERULAR FILTRATION RATE 42.1 (>42); POTASSIUM SERUM 4.7 MMOL/L (3.5-5.1); TOTAL PROTEIN 6.9 G/DL (5.7-8.2)
== END ==
LOC: M LABDRWAD 13:20
PROVIDERS: ATTEND Nurse Practitioner Acute Care
DX: I25.5 Ischemic cardiomyopathy (principal)

== ENCOUNTER → 2025-07-14 | Outpatient (REF) | payer BC, MEDICARE ==
[~2025-07-14] MED LIST changes: -PRAV20TA2 PO; +PRAV20TA78 PO
[2025-07-14 18:38] LABS: ALT/SGPT 21.0 U/L (7.0-40); AST/SGOT 25.0 U/L (<34); CALCIUM LEVEL 8.7 MG/DL (8.3-10.6); CARBON DIOXIDE LEVEL 26.0 MMOL/L (20-31); CHLORIDE LEVEL 97.0 MMOL/L (98-107); CREATININE FOR GFR 1.17 MG/DL (0.70-1.30); GLOMERULAR FILTRATION RATE 65.0 (>42); POTASSIUM SERUM 4.5 MMOL/L (3.5-5.1); SODIUM LEVEL 133.0 MMOL/L (136-145)
[2025-07-14 18:42] LABS: PLATELET COUNT, AUTOMATED 155 10^3/uL (150-450)
== END ==
LOC: M SFHCADAM 11:43
PROVIDERS: ATTEND Family Medicine
DX: I25.10 Atherosclerotic heart disease of native coronary artery without angina pectoris (principal); I11.0 Hypertensive heart disease with heart failure

== ENCOUNTER → 2025-07-19 | Outpatient (CLI) | payer BC, MEDICARE | LOC: M RAD 09:14 | PROVIDERS: ATTEND Physician Assistant | DX: R91.8 Other nonspecific abnormal finding of lung field (principal); J43.9 Emphysema, unspecified; J47.9 Bronchiectasis, uncomplicated; Z95.1 Presence of aortocoronary bypass graft; Z95.0 Presence of cardiac pacemaker; K44.9 Diaphragmatic hernia without obstruction or gangrene; K76.89 Other specified diseases of liver ==

== ENCOUNTER → 2025-08-12 | Outpatient (REF) | payer BC, MEDICARE ==
[2025-08-12 13:04] LABS: INR 1.06
[2025-08-12 13:19] LABS: ALT/SGPT 24.0 U/L (7.0-40); AST/SGOT 26.0 U/L (<34); CALCIUM LEVEL 8.9 MG/DL (8.3-10.6); CARBON DIOXIDE LEVEL 25.0 MMOL/L (20-31); CHLORIDE LEVEL 101.0 MMOL/L (98-107); CREATININE FOR GFR 1.36 MG/DL (0.70-1.30); GLOMERULAR FILTRATION RATE 54.3 (>42); POTASSIUM SERUM 5.2 MMOL/L (3.5-5.1); SODIUM LEVEL 136.0 MMOL/L (136-145)
== END ==
LOC: M SFHCADAM 10:51
PROVIDERS: ATTEND Family Medicine
DX: K76.9 Liver disease, unspecified (principal); E87.1 Hypo-osmolality and hyponatremia

== ENCOUNTER → 2025-08-20 | Outpatient (CLI) | payer BC, MEDICARE ==
[~2025-08-20] MED LIST changes: +ISOVUE-370 76% 100 ML VIAL As Ordered ONE
== END ==
LOC: M RAD 16:05
PROVIDERS: ATTEND Family Medicine
DX: K76.9 Liver disease, unspecified (principal)
CPT/HCPCS: 74178; Q9967

== ENCOUNTER → 2025-09-06 | Outpatient (REF) | payer BC, MEDICARE ==
[~2025-09-06] MED LIST changes: -ISOVUE-370 76% 100 ML VIAL As Ordered ONE
== END ==
LOC: M SFHCADAM 11:31
DX: K76.9 Liver disease, unspecified (principal)

== ENCOUNTER → 2025-09-28 | Outpatient (REF) | payer BC, MEDICARE ==
[2025-09-28 17:07] LABS: PLATELET COUNT, AUTOMATED 144 10^3/uL (150-450)
[2025-09-28 17:28] LABS: INR 1.12
== END ==
LOC: M SFHCADAM 13:57
DX: K76.9 Liver disease, unspecified (principal)

== ENCOUNTER → 2025-10-06 | Outpatient (CLI) | payer BC, MEDICARE ==
[2025-10-06] MEDS: LIDOCAINE 1% MDV 20 ML VIAL SC ONE (13:50)
[2025-10-06 13:53] VITALS: TEMP 97
[2025-10-06 17:00] VITALS: BP 142/70; O2SAT 95
== END ==
LOC: M IRPRO 13:41
DX: C22.0 Liver cell carcinoma (principal); K76.9 Liver disease, unspecified

== ENCOUNTER → 2025-11-16 | Outpatient (CLI) | payer BC, MEDICARE ==
[~2025-11-16] MED LIST changes: +BISO10TA14; +BUSP15TA48; +CLOP75TA2; +FLUT1BLS8; +FURO20TA2; +GABA-1172; +RANO500T2; +ROSU40TA81; +SACUBITRIL-VALSARTAN
== END ==
LOC: M PLARAD 08:54
PROVIDERS: ATTEND Specialist
DX: C22.0 Liver cell carcinoma (principal)
CPT/HCPCS: 78815; A9552

== ENCOUNTER → 2025-11-30 | Outpatient (POV) | payer BC, MEDICARE ==
[~2025-11-30] MED LIST changes: -BISO10TA14; +BISO10TA14 PO; -BUSP15TA48; +BUSP15TA48 PO; -CLOP75TA2; +CLOP75TA2 PO; -FLUT1BLS8; +FLUT1BLS8 INH; -FURO20TA2; +FURO20TA2 PO; -GABA-1172; +GABA-1172 PO; -RANO500T2; +RANO500T2 PO; -ROSU40TA81; +ROSU40TA81 PO; -SACUBITRIL-VALSARTAN; +SACUBITRIL-VALSARTAN PO
== END ==
LOC: M IRPOV 13:00
PROVIDERS: ATTEND Registered Nurse School
DX: C22.0 Liver cell carcinoma (principal)